=== PATIENT | female | born 1955 | race Caucasian/White ===

== ENCOUNTER 2017-05-08 07:23 | Day surgery (SDC) | payer OTHER ==
[~2017-05-08] VITALS: Ht 157.5 cm; Wt 91.6 kg
[~2017-05-08 07:23] MED LIST: ALBU90OI INH; ALBU90OI6 INH; ALBU90OI6 PO; ALBU90OI61 INH; ALLO100 PO; AMIT25 PO; AMIT50; AMIT50 PO; ASPI325 PO; ASPI81CH PO; ASPI81EC PO; ATOR40TA PO; ATOR80 PO; Advair Hfa 230-12 GM INH; Ativan0.5 MG PO; CHOL10002 PO; CITA20 PO; CITALOPRAM PO; CLOP75 PO; COLCHICINE0.6 MG PO; CYAN100 PO; CYAN500 PO; CYCL10 PO; Cyclobenzaprine5 MG PO; DAILY VALUE1 EACH PO; DICL25ER TOP; DOCU100 PO; ESTR1 PO; ESTR2 PO; ESTRADIOL; Enema133 M1 RC; Estradiol2 MG PO; FENO145 PO; FENO160 PO; FISH1000 PO; FLUSAL2505 INH; FOLI1 PO; GLYCAS PR; GUAI600T33 PO; HYDACE7.5 PO; HYDCHL25 PO; HYDCOR10 PO; HYDR1TAB94 PO; HYDSUL200 PO; Hydrocodone-Ap1 EA23 PO; Hydroxychloroq200 MG PO; LEVO750 PO; LISHYD1012 PO; LISHYD2025 PO; LISI5 PO; LORA.5 PO; LORA10 PO; LORA10ER PO; MALOXICAM; MELO7.5 PO; METF500; METF500 PO; METTREX2.5 PO; MILK OF MAGNESIA PO; MIRALAX PO; MOMENI; MULTI VITAMIN1 EACH PO; NICO14TP TOP; NICO21TP TOP; NICO7 TOP; Nasonex17 GM; Norco 7.5-3251 EACH PO; OXYACE7.5T; OXYC5 PO; PANT40 PO; POTA10T PO; POTCHL10ER PO; PRAV20 PO; PRAVASTATIN PO; PRED20 PO; PREG200 PO; PROM25 PO; PSEU120ER PO; Phenergan25 M1 PO; QVAR7.3 G1 IH; SENN187 PO; SOLI5 PO; SPIRIVA RESPIMAT4 GM INH; Simvastatin10 MG PO; TIOT18 IH; TIOT18 INH; TOLT2ER PO; TRAM50 PO; Tylenol325 MG PO; VARE1 PO; VESICARE PO; VITAMIN B 12 PO; ZESTORETIC 20-121 EA; Zocor20 MG PO
== END 2017-05-08 22:52 | disposition home or self-care (01) ==
LOC: ORSCMMR 07:23
PROVIDERS: Internal Medicine Gastroenterology
PROC: 0DB48ZX Excision of Esophagogastric Junction, Via Natural or Artificial Opening Endoscopic, Diagnostic (ICD-10-PCS; principal; 2017-05-08 08:30)
PROC: 0D758ZZ Dilation of Esophagus, Via Natural or Artificial Opening Endoscopic (ICD-10-PCS; principal; 2017-05-08 08:30)
PROC: 0DB68ZX Excision of Stomach, Via Natural or Artificial Opening Endoscopic, Diagnostic (ICD-10-PCS; principal; 2017-05-08 08:30)
PROC: 0DB58ZX Excision of Esophagus, Via Natural or Artificial Opening Endoscopic, Diagnostic (ICD-10-PCS; principal; 2017-05-08 08:30)
DX: R13.14 Dysphagia, pharyngoesophageal phase (principal); R93.8 Abnormal findings on diagnostic imaging of other specified body structures; E78.00 Pure hypercholesterolemia, unspecified; J44.9 Chronic obstructive pulmonary disease, unspecified; Z87.891 Personal history of nicotine dependence; Z79.82 Long term (current) use of aspirin; Z79.899 Other long term (current) drug therapy
CPT/HCPCS: 82947; 88305; 88312; 88342; C1726; J7120

== ENCOUNTER → 2017-12-24 | Outpatient (CLI) | payer OTHER | END | disposition home or self-care (01) | LOC: LAB 12:39 → LAB SHORT 12:39 | DX: L60.2 Onychogryphosis (principal); B35.1 Tinea unguium | CPT/HCPCS: 88305; 88312 ==

== ENCOUNTER 2018-04-02 00:04 | Day surgery (SDC) | payer OTHER ==
[2018-04-02] MEDS ORDERED: CITA20 PO (14:48)
[2018-04-02] MEDS ORDERED: HYDSUL200 PO (14:49)
[2018-04-02] MEDS ORDERED: METTREX2.5 PO (14:51)
[2018-04-02] MEDS ORDERED: TRAM50 PO (14:52)
[2018-04-02] MEDS ORDERED: MOMENI (14:54)
[2018-04-02] MEDS ORDERED: Zofran4 MG PO (14:55)
[2018-04-02] MEDS ORDERED: FOLI1 PO (14:55)
[2018-04-02] MEDS ORDERED: ADULT ASPIRIN R81 MG PO (14:56)
[2018-04-02] MEDS ORDERED: TIOT18 INH (14:56)
[2018-04-02] MEDS ORDERED: MULTI VITAMIN1 EACH PO (14:57)
[2018-04-02] MEDS ORDERED: METF500C PO (14:58)
[2018-04-02] MEDS ORDERED: Zantac150 MG PO (14:58)
[2018-04-02] MEDS ORDERED: ZESTORETIC 20-121 EA PO (15:01)
[2018-04-02] MEDS ORDERED: FURO40 PO (15:02)
== END 2018-04-02 17:50 | disposition home or self-care (01) ==
LOC: ATC 00:04
DX: G61.82 Multifocal motor neuropathy (principal)
CPT/HCPCS: 96365; 96366; J1568

== ENCOUNTER 2018-04-03 00:13 | Day surgery (SDC) | payer OTHER ==
[~2018-04-03 00:13] MED LIST changes: +ADULT ASPIRIN R81 MG PO; +FURO40 PO; +METF500C PO; +ZESTORETIC 20-121 EA PO; +Zantac150 MG PO; +Zofran4 MG PO
== END 2018-04-03 22:50 | disposition home or self-care (01) ==
LOC: ATC 00:13
DX: G61.82 Multifocal motor neuropathy (principal); M19.90 Unspecified osteoarthritis, unspecified site; I73.9 Peripheral vascular disease, unspecified; E11.9 Type 2 diabetes mellitus without complications
CPT/HCPCS: 96365; 96366; J1568

== ENCOUNTER 2018-04-04 00:12 | Day surgery (SDC) | payer OTHER ==
[2018-04-04 10:03] LABS: Anion Gap 4 mmol/L (6-16); Blood Urea Nitrogen 21 mg/dL (8-24); Bun/Creatinine Ratio 27.9 (12.0-20.0); CO2, Blood 31 mmol/L (21-32); Calcium, Blood 9.2 mg/dL (8.5-10.1); Chloride, Blood 96 mmol/L (98-108); Creatinine, Blood 0.75 mg/dL (0.40-1.00); Glomerular Filtration Rate >60 (60-); Glucose, Blood 185 mg/dL (70-99); Potassium, Blood 4.7 mmol/L (3.5-5.5); Sodium, Blood 131 mmol/L (136-145)
== END 2018-04-04 12:12 | disposition home or self-care (01) ==
LOC: ATC 00:12
PROVIDERS: Psychiatry & Neurology Neurology
DX: G61.82 Multifocal motor neuropathy (principal); E11.9 Type 2 diabetes mellitus without complications; E78.5 Hyperlipidemia, unspecified; G47.30 Sleep apnea, unspecified; K21.9 Gastro-esophageal reflux disease without esophagitis; F32.9 Major depressive disorder, single episode, unspecified; Z87.891 Personal history of nicotine dependence
CPT/HCPCS: 80048; 96365; 96366; J1568

== ENCOUNTER 2018-05-28 00:24 | Day surgery (SDC) | payer OTHER ==
[2018-05-28] MEDS ORDERED: Hydrochloroth12.5 MG PO (15:13)
[2018-05-28] MEDS ORDERED: LISI5 PO (15:14)
[2018-05-28] MEDS ORDERED: KAPSPARGO SPRIN25 MG PO (15:16)
== END 2018-05-28 16:29 | disposition home or self-care (01) ==
LOC: ATC 00:24
DX: G61.82 Multifocal motor neuropathy (principal); Z87.891 Personal history of nicotine dependence
CPT/HCPCS: 96365; 96366; J1568

== ENCOUNTER 2018-05-29 00:10 | Day surgery (SDC) | payer OTHER ==
[~2018-05-29 00:10] MED LIST changes: +Hydrochloroth12.5 MG PO; +KAPSPARGO SPRIN25 MG PO
== END 2018-05-29 15:50 | disposition home or self-care (01) ==
LOC: ATC 00:10
DX: G61.82 Multifocal motor neuropathy (principal)
CPT/HCPCS: 96365; 96366; J1568

== ENCOUNTER 2018-05-30 00:20 | Day surgery (SDC) | payer OTHER | END 2018-05-30 15:47 | disposition home or self-care (01) | LOC: ATC 00:20 | DX: G61.82 Multifocal motor neuropathy (principal); Z88.2 Allergy status to sulfonamides | CPT/HCPCS: 96365; 96366; J1568 ==

== ENCOUNTER 2018-05-31 00:04 | Day surgery (SDC) | payer OTHER | END 2018-05-31 16:00 | disposition home or self-care (01) | LOC: ATC 00:04 | DX: G61.82 Multifocal motor neuropathy (principal); Z87.891 Personal history of nicotine dependence | CPT/HCPCS: 96365; 96366; J1568 ==

== ENCOUNTER → 2018-08-13 | Outpatient (CLI) | payer OTHER ==
[2018-08-14 20:40] LABS: Adenovirus F 40/41 Not Detected (NOT DETECT); Astrovirus Not Detected (NOT DETECT); Campylobacter Sp Not Detected (NOT DETECT); Cryptosporidium Not Detected (NOT DETECT); Cyclospora Cayetanensis Not Detected (NOT DETECT); E. Coli O157 Not Detected (NOT DETECT); Entamoeba Histolytica Not Detected (NOT DETECT); Enteroaggregative E. coli-EAEC Not Detected (NOT DETECT); Enteropathogenic E. coli-EPEC Not Detected (NOT DETECT); Enterotoxigenic E. coli-ETEC Not Detected (NOT DETECT); Giardia Lamblia Not Detected (NOT DETECT); Norovirus GI/GII Not Detected (NOT DETECT); Plesiomonas Shigelloides Not Detected (NOT DETECT); Rotavirus A Not Detected (NOT DETECT); Salmonella Sp Not Detected (NOT DETECT); Sapovirus Not Detected (NOT DETECT); Shiga Toxin-prod E. coli-STEC Not Detected (NOT DETECT); Shigella/Enteroin E. coli-EIEC Not Detected (NOT DETECT); Vibrio Cholerae Not Detected (NOT DETECT); Vibrio Sp Not Detected (NOT DETECT); Yersinia Enterocolitica Not Detected (NOT DETECT)
== END | disposition home or self-care (01) ==
LOC: LAB 10:30 → LAB SHORT 10:30
PROVIDERS: Nurse Practitioner Family
DX: R10.31 Right lower quadrant pain (principal); R19.7 Diarrhea, unspecified
CPT/HCPCS: 87507

== ENCOUNTER → 2018-08-15 | Outpatient (CLI) | payer OTHER ==
[~2018-08-15] MED LIST changes: +METO25ER PO
== END | disposition home or self-care (01) ==
LOC: LAB 13:30 → LAB SHORT 13:30
DX: R10.31 Right lower quadrant pain (principal); R19.7 Diarrhea, unspecified
CPT/HCPCS: 87177; 87209

== ENCOUNTER 2018-08-23 17:51 | Inpatient (IN) | payer OTHER ==
[~2018-08-23] VITALS: Ht 157.5 cm; Wt 75.1 kg
[~2018-08-23 17:51] MED LIST changes: -METO25ER PO
[2018-08-23 18:55] LABS: BASOPHILS ABSOLUTE AUTO 0.03 K/mm3 (0.00-0.23); BASOPHILS PERCENT AUTO 0 % (0-2); EOSINOPHILS ABSOLUTE AUTO 0.29 K/mm3 (0.00-0.68); EOSINOPHILS PERCENT AUTO 3 % (0-6); Hematocrit 27.9 % (33.0-51.0); Hemoglobin 8.7 g/dL (11.5-16.0); IMMATURE GRAN PERCENT AUTO 1 % (0-1); LYMPHOCYTES PERCENT AUTO 15 % (21-46); MONOCYTES ABSOLUTE AUTO 0.27 K/mm3 (0.16-1.47); MONOCYTES PERCENT AUTO 3 % (4-13); Mean Corpuscular HGB 30.6 pg (26.0-34.0); Mean Corpuscular HGB Conc 31.2 g/dL (31.5-36.5); Mean Platelet Volume 10.2 fL (9.1-12.4); NEUTROPHILS PERCENT AUTO 79 % (41-73); Platelet Count 224 K/mm3 (150-400); RDW Coefficient Variation 20.4 % (11.7-14.2); RDW Standard Deviation 71.9 fL (35.1-46.3); Red Blood Cell Count 2.84 M/mm3 (3.80-5.20); White Blood Cell Count 10.19 K/mm3 (4.00-11.30)
[2018-08-23 19:01] LABS: Mean Corpuscular Volume 98 fL (80-100)
[2018-08-23 19:18] LABS: Albumin, Blood 3.4 g/dL (3.4-5.0); Bilirubin, Total 0.4 mg/dL (0.1-1.0); Bun/Creatinine Ratio 29.7 (12.0-20.0); Calcium, Blood 8.8 mg/dL (8.5-10.1); Creatinine, Blood 1.18 mg/dL (0.40-1.00); Globulin, Blood 3.5 g/dL (2.2-4.0); Potassium, Blood 3.8 mmol/L (3.5-5.5); Total Protein, Blood 6.9 g/dL (6.4-8.2)
[2018-08-23 22:38] LABS: Source, Urine Clean Catch
[2018-08-23 22:41] LABS: Bilirubin, Urine Neg (Neg); Blood, Urine Neg (Neg); Glucose Qualitative, Urine Neg (Neg); Ketones, Urine Neg (Neg); Leukocyte Esterase, Urine 1+ (Neg); Nitrite, Urine Neg (Neg); Protein, Urine Neg (Neg); Urobilinogen, Urine NORM (Normal)
[2018-08-23 22:47] LABS: Appearance, Urine Clear (Clear); Color, Urine Yellow (P-Yellow)
[2018-08-23 22:48] LABS: Red Blood Cells, Urine Not Seen /hpf (0-2); White Blood Cells, Urine 0-2 /hpf (0-5)
[2018-08-23 22:49] LABS: Bacteria Rare /hpf; Squamous Epithelial Cells Not Seen /hpf (Few)
[2018-08-23] MEDS ORDERED: METO25ER PO (23:26)
[2018-08-24 04:52] LABS: Hematocrit 30.4 % (33.0-51.0); Hemoglobin 9.1 g/dL (11.5-16.0); Mean Corpuscular HGB 30.5 pg (26.0-34.0); Mean Corpuscular HGB Conc 29.9 g/dL (31.5-36.5); Mean Platelet Volume 10.4 fL (9.1-12.4); Platelet Count 241 K/mm3 (150-400); RDW Coefficient Variation 20.2 % (11.7-14.2); RDW Standard Deviation 73.4 fL (35.1-46.3); Red Blood Cell Count 2.98 M/mm3 (3.80-5.20); White Blood Cell Count 14.39 K/mm3 (4.00-11.30)
[2018-08-24 04:53] LABS: Mean Corpuscular Volume 102 fL (80-100)
--- NOTE | 2018-08-24 04:56 | NUR ---
SHIFT SUMMARY PT NEW ADMIT THIS SHIFT. AAOX4/NPO. DISCOMFORT CONTROLLED WITH 0.5MG IV DILAUDID X2 THIS AM. NO NAUSEA/EMESIS. PT 2 PERSON MODERATE ASSIST UP TO BSC. SURGICAL CONSULT CALLED THIS AM. PT RESTED WELL THIS AM. PT ORIENTED TO ROOM + CALL LIGHT USE. RESTING AT THIS TIME. CALL LIGHT IN REACH.
[2018-08-24 05:13] LABS: Albumin, Blood 3.3 g/dL (3.4-5.0); Albumin/Globulin Ratio 0.9 (0.8-1.8); Bilirubin, Total 0.5 mg/dL (0.1-1.0); Bun/Creatinine Ratio 28.8 (12.0-20.0); Calcium, Blood 8.5 mg/dL (8.5-10.1); Creatinine, Blood 1.04 mg/dL (0.40-1.00); Globulin, Blood 3.6 g/dL (2.2-4.0); Potassium, Blood 3.7 mmol/L (3.5-5.5); Total Protein, Blood 6.9 g/dL (6.4-8.2)
--- NOTE | 2018-08-24 09:05 | NUR ---
POWDER NOT APPLIED TO ABD FOLDS PT TO HAVE PROCEDURE TODAY, DRY CLOTH PLACED IN FOLDS.
--- NOTE | 2018-08-24 12:11 | NUR ---
ANESTHESIA HERE WITH OTHER RN. PT GOING TO HAVE PROCEDURE. DISCUSSED PT'S STATUS INCLUDING LS SWITCH BETWEEN COARSE AND DIMINISHED, WITH LAST LS BEING DIMINISHED. BELONGINGS TAKEN OFF AND PLACED IN CUP AND PLACED IN PT'S PERSONAL BAG. DISCUSSED WITH ANESTHESIA THAT PT REQUESTED THAT THE DR CALLED PT'S FAMILY. PT TO HAVE PROCEDURE.
--- NOTE | 2018-08-24 14:16 | NUR ---
NASAL TRUMPET OUT
--- NOTE | 2018-08-24 14:34 | NUR ---
REPORT GIVEN TO SHIPPING PACKER WHO WILL BE TAKING OVER PT'S CARE. BELONGINGS TAKEN TO ROOM. MEDICATIONS LOCKED IN DRAWER.
--- NOTE | 2018-08-24 18:28 | NUR ---
PT HAS BEEN A/O X4 SINCE BEING TRANSFERED TO OUR FLOOR AT 1555. BP'S HAVE BEEN APROXIMATELY 80'S OVER 50'S SINCE SURGERY AT 1300, PT IS NOT SYMPTOMATIC, NO LIGHTHEADEDNESS OR NO DIZZYNESS. PT'S PAIN HAS BEEN MINIMAL WITH REST, AND A 5 WITH MOVEMENT. FINE WHEEZES WITH EXPIRATION ON LEFT SIDE, RIGHT SIDE CLEAR. O2 SATURATION 94% WITH 1.5L. BED IN LOWEST POSITON, CALL LIGHT IN REACH, PT ORIENTED TO SAFETY PROTOCOL.
--- NOTE | 2018-08-25 05:03 | NUR ---
ASSUMED CARE FROM CORNELL RN, AND LI MCKEE, AT APPROXIMATELY 1900. PT HAD A HERNIA REPAIR TODAY, HAS A WOUND VAC IN PLACE W/ ABDOMEN BINDER; PT FORGETS LIMITS AT TIMES AND TRIED TO GET OUT OF BED; TWO PERSON ASSIST; SANTOS IN PLACE AND DRAINING; PT COMPLAINS OF SOB WHEN LAYED FLAT, BECOMES ANXIOUS W/ SOB WITH POSITION CHANGES AND DESATS; PT GASPS FOR AIR AND NEEDS REMINDED TO BREATH THROUGH NOSE TO MAKE USE OF NC; RT WAS CALLED; SLEPT ON AND OFF THROUGH THE NIGHT; HAD SEVERE PAIN IN LOWER AMDOMEN AND MEDICATION WAS ADMINISTERED PER ORDERS; BED IN LOWEST POSITION; CALL LIGHT WITHIN REACH; WILL CONTINUE TO MONITOR AND ASSESS UNTIL HANDOFF TO DAY SHIFT RN.
--- NOTE | 2018-08-25 05:27 | NUR ---
PATIENT REPORTED NOT BEING ABLE TO BREATH WELL WHEN LAYING FLAT; O2 NEEDS INCREASED TO 2LPM VIA NC; PATIENT NEEDS ENCOURAGEMENT TO BREATH IN NOSE; OXYEGN REMOVED ONCE THROUGH OUT NIGHT. CALLED RT TWICE DURING NIGHT. PATIENT APPEARS TO SLEEP WELL WHEN SITTING UP IN BED; MEDICATED PER EMAR FOR PAIN; APPEARED TO SLEEP WELL IN BETWEEN IV PAIN MEDICATION ADMINISTRATION.
--- NOTE | 2018-08-25 11:00 | NUR ---
PT WAS FOUND DOWN ON THE GROUND BESIDES THE BED FOLLOWING AN UNWITNESSED FALL. PREPRESS PROOFER NOTICED CALL LIGHT WAS FLASHING DUE TO BEING PULLED OUT. PT FOUND DOWN AT 1022, TELEMETRY SAID THAT PT'S LEADS CAME OFF AT 1021. PT WAS PANICING AND PULLING AT NEARBY CORDS, VITALS WERE TAKEN ON THE GROUND WHILE OXYGEN WAS OFF AND O2 SATURATION WAS 78, BP 105/66, AND HR 142. PT WAS CONFUSED UPON ASSESSMENT, OXYGEN WAS PLACED BACK ON AND PT WAS CALMED. PT WAS RETURNED TO BED AT 1029 VIA HOVERMAT, AND PT WAS ORIENTED WITH VITALS OF 96% 02, BP OF 131/72, AND HR OF 124. PT WAS FREE OF ANY SKIN BLEMISHES, AND STATED THAT SHE HAD A PAIN LEVEL OF A 1. VITALS AND NEURO CHECKS WERE COMPLETED Q15 FOR AN HOUR AND VITALS WERE ASSESSED HOURLY FOR THE REMAINING OF THE DAY, HR AND BP HAVE TRENDED BACK TO PRE-FALL BASELINE. ABDOMINAL HERNIA/SURGICAL WOUND REMAINS INTACT WITHOUT DEHISCENCE, PT STATES NO PAIN AT SITE, WOUND VAC STILL INTACT AND PATENT. BED ALARM IS ON, YELLOW GOWN ON PT, PT ORIENTED TO SAFETY PRECAUTIONS, AND NURSING STAFF HAVE BEEN IN ROOM FREQUENTLY.
--- NOTE | 2018-08-25 18:13 | NUR ---
SHIFT SUMMARY PT IS BECOMING MORE ALERT. PT RECEIVED AN OXYCODONE AT 900 THIS MORNING FOR PAIN, WHICH IT RESOLVED, BUT PT HAS BEEN SOMNOLENT WITH INCREASED CONFUSION SINCE NARCOTIC ADMINISTRATION. PT HAS BECOME LUCID OF 1800 AND IS SITTING UP FOR DINNER. PT FELL ABOUT AN HOUR AFTER NARCOTIC ADMINISTRATION, LATER STATED SHE WAS CONFUSED AND WAS TRYING TO GO TO THE BATHROOM, BECAUSE SHE FORGOT ABOUT HER CATHETER. BROTHER ARRIVED SHORTLY AFTERWARDS AND STATED THAT SHE HAS HAD FALLS AT HOME IN THE PAST. PT HAS HAD A BP IN 90' OVER 50'S MOST OF THE SHIFT, WHICH WE WERE TOLD BY TITUS (ROOMMATE) THAT THIS IS CLOSE TO HER BASELINE. WOUND HAS HAD NO DRAINAGE, PAIN HAS BEEN CONTROLLED SINCE ADMINISTRATION OF OXYCODONE AT 900, OXY HAS SINCE BEEN DC'D. LUNG SOUNDS HAVE CRACKLES IN BIALTERAL BASES. CALL LIGHT IN REACH, BED IN LOWEST POSITION, BED ALARM ON, AND PT ORIENTED TO SAFETY PRECAUTIONS.
--- NOTE | 2018-08-26 00:14 | NUR ---
ASSUMED CARE FROM BARTOLOME SARABIA AND SN LI AT APPROXIMATELY 1900. PT HAS NC IN MOUTH TO MAINTAIN SATS WHILE OFF BIPAP. SHE IS ANXIOUS TO DISCHARGE; SEEMS LONELY AT TIMES; PT ENJOYS EATING PUDDING A SNACK AND TOLERATES WELL; ASSISTANCE WITH DRINK AND REMINDED TO TAKE SMALL SIPS AT A TIME PT COUGHS AFTER DRINK; PT UTILIZED BIPAP FOR SHORT AMOUNT OF TIME AND C/O OF DISCOMFORT AND REQUESTED TO USE NC FOR NAP; BED IN LOWEST POSITION, CALL LIGHT WITHIN REACH; BED ALARM ON; WILL CONTINUE TO MONITOR AND ASSESS UNTIL HANDOFF TO DAY SHIFT RN.
--- NOTE | 2018-08-26 00:50 | NUR ---
ASSUMED CARE FROM BARTOLOME SARABIA AND SN LI AT APPROXIMATELY 1900. PT SEEMS TO GO BETWEEN CONFUSION AND LUCID MOMENTS; STATED SHE "FEELS FUNNY" DURING SHIFT ASSESSMENT; ANXIOUS TO BE DISCHARGED TO HOME; TAB ALARMS PLACED DURING SHIFT REPORT AND BED ALARM CONFIRMED; PT EDUCATED ON TAB ALARM PLACEMENT AND NEED TO CALL FOR ASSISTANCE; ABDOMEN VERY TENDER AND PT DID NOT TOLERATE WELL ASSESSMENT OF WOUND VAC AND ABDOMEN BINDER; MEDICATION ADMINISTERED PER ORDERS; PT CURRENTLY CALM AND RESTING WELL; BED ALARM ON; BED IN LOWEST POSITION; CALL LIGHT WITHIN REACH; WILL CONTINUE TO ASSESS AND MONITOR UNTIL HANDOFF TO DAY SHIFT RN.
--- NOTE | 2018-08-26 03:45 | NUR ---
CLEANSED LOWER ABDOMEN AND SHAY AREA; APPLIED NYSTATIN; PT SLEEPING WELL; NO S/SX OF PAIN NOTED AFTER MEDICATING PER EMAR; WILL CONTINUE TO MONITOR AND ASSESS UNTIL END OF SHIFT.
--- NOTE | 2018-08-26 11:58 | NUR ---
PT ATTEMPTED TO GET OUT OF BED, CORNELL ASSISTED BACK INTO BED AND REORIENTED PT TO UTILIZING THE CALL LIGHT FOR NEEDS. PT WAS THE 2 MAX ASSIST UP TO BSC, DIFFICULT WITH FOLLOWING DIRECTIONS, REQUIRES CONSTANT DIRECTIONING IN DIRECT SINGLE REQUESTS. PT IS VERY WEAK WITH BLE. PT HAS BEEN SQUIRMING AROUND IN BED AND HAVING INTERMITTENT SELF TALK THIS AM. TALKED TO TITUS (ROOMMATE) THIS MORNING, PT GAVE PERMISSION TO DISCUSS CARE WITH ROOMMATE. ROOMMATE SAID THAT SHE DOESN'T SOUND "BACK TO NORMAL" YET, BUT SHE STATED THAT SHE ALWAYS HAS THAT "DIFFICULT TO UNDERSTAND" SPEECH PATTERN. INFORMED ROOMMATE WE'D KEEP HER IN THE LOOP
--- NOTE | 2018-08-26 13:45 | NUR ---
ASSISTED PT WITH 2 MAX ASSIST TO BSC. PT WAS MORE ORIENTED AND WAS ABLE TO FOLLOW COMMANDS MORE APPROPRIATELY. DELAYED RESPONSES TO COMMANDS, BUT PERFORMED SELF MOUTH CARE WITH BOTH HANDS USING TOOTHETTE. PT HAS WEAK BLE WITH TRANSFER, BUT WAS ABLE TO STAND LONG ENOUGH TO TURN AND PIVOT WITH VERBAL DIRECTING. PT VOIDED 45ML. BED MOVED TO WINDOWN, PT SHOWED DESIRE TO SEE OUTSIDE.
--- NOTE | 2018-08-26 17:47 | NUR ---
SHIFT SUMMARY PT HAS BEEN BECOMING MORE CLEAR HEADED THROUGHOUT THE SHIFT, BUT STILL HAS BOUTS OF CONFUSION. PT IS DIFFICULT TO UNDERSTAND, MUMBLES AND IS SLOW TO RESPOND. REQUIRES CONTINUAL DIRECTING FOR TURN AND PIVOT TO BSC, PT MOVED TO BSC WITH 2 MAX ASSIST MULTIPLE TIMES TODAY. SANTOS WAS OUT AT 0519 THIS MORNING, PT HAS SATURATED ONE BRIEF, THEN HAD 45ML IN BSC A FEW HOURS LATER. BLADDER SCAN AT 1420 READ 402, DR ELIZONDO ORDERED FLOMAX AND WANTED HER TO BE GIVEN SOME MORE TIME BEFORE STRAIGHT CATH. PT HAS BEEN SINUS TACH IN THE LOW 100'S. PT'S BED WAS MOVED IN FRONT OF THE WINDOW, DUE TO DESIRE FOR SEEING OUTSIDE, SINCE THEN PT HAS BEEN FAIRLY CALM IN BED. HEAD CT SCAN WAS DONE TODAY AT 1700. PT/OT CONSULTS ARE PUT IN. TITUS (ROOMMATE) STATED THAT THE PT WILL NEED TO BE "INDEPENDENT WHEN SHE COMES HOME BECAUSE SHE AHS HER OWN BODILY AILMENT, HIP AND KNEE, TO TAKE CARE OF". PT HAS BEEN ORIENTED TO SAFETY FALL PRECAUTIONS, BED IS IN LOWEST POSITION, CALL LIGHT IN REACH, AND PERSONAL ITEMS WITHIN REACH.
[2018-08-26 23:41] LABS: PCO2 Arterial 54.6 mmHg (35-45); pH Blood Arterial 7.39 (7.35-7.45)
--- NOTE | 2018-08-27 05:39 | NUR ---
SHIFT SUMMARY PT RESTING IN ROOM COMFORTABLY AT THIS TIME. PT HAS ONE EPISODE OF MAJOR CONFUSION DURING THE NIGHT. PT SET OFF TAB ALARM IN EFFORTS TO GET OUT OF BED W/O USING CALL LIGHT. PT REPORTED HAVING TO USE RR. PT WAS A MAX LIFT ASSIST 3 PERSON TO BSC. PT WAS UNABLE TO SUPPORT SELF TO STANDING POSITION AND 3 STAFF MEMBERS WERE NEEDED TO GET PT TO BSC AND BACK TO BED. PT REMAINED VERY CONFUSED T/O EVENT. VITALS TAKEN ONCE PT BACK IN BED, O2 SATS WERE 72%. O2 REPLACED ON PT AND BUMPED UP TO 4L TO RECOVER PT. PT BACK TO BASELINE MENTATION IN BED W/IN 5 MIN. PT GIVEN ORAL MEDICATIONS FOR REPORTED ABD PAIN. PT CONTINUED TO REST WELL T/O REST OF SHIFT. CONTINUES TO NEED REMINDING TO KEEP O2 IN NOSE. PT AT TIMES CONFUSED AND HARD TO UNDERSTAND VERBALLY. BED ALARM AND TAB ALARM ON FOR SAFETY.
[2018-08-27 06:40] LABS: BASOPHILS ABSOLUTE AUTO 0.04 K/mm3 (0.00-0.23); BASOPHILS PERCENT AUTO 1 % (0-2); Hematocrit 26.1 % (33.0-51.0); Hemoglobin 7.7 g/dL (11.5-16.0); LYMPHOCYTES ABSOLUTE AUTO 0.49 K/mm3 (0.84-5.20); LYMPHOCYTES PERCENT AUTO 6 % (21-46); MONOCYTES ABSOLUTE AUTO 0.96 K/mm3 (0.16-1.47); MONOCYTES PERCENT AUTO 11 % (4-13); Mean Corpuscular HGB 29.8 pg (26.0-34.0); Mean Corpuscular HGB Conc 29.5 g/dL (31.5-36.5); Mean Corpuscular Volume 101 fL (80-100); Mean Platelet Volume 10.4 fL (9.1-12.4); Platelet Count 210 K/mm3 (150-400); RDW Coefficient Variation 19.6 % (11.7-14.2); RDW Standard Deviation 70.4 fL (35.1-46.3); Red Blood Cell Count 2.58 M/mm3 (3.80-5.20); White Blood Cell Count 8.63 K/mm3 (4.00-11.30)
[2018-08-27 06:46] LABS: EOSINOPHILS ABSOLUTE AUTO 0.13 K/mm3 (0.00-0.68); EOSINOPHILS PERCENT AUTO 2 % (0-6); IMMATURE GRAN ABSOLUTE AUTO 0.06 K/mm3 (0.00-0.10); IMMATURE GRAN PERCENT AUTO 1 % (0-1); NEUTROPHILS ABSOLUTE AUTO 6.95 K/mm3 (1.96-9.15); NEUTROPHILS PERCENT AUTO 81 % (41-73)
[2018-08-27 07:03] LABS: Anion Gap 5 mmol/L (6-16); Blood Urea Nitrogen 22 mg/dL (8-24); CO2, Blood 34 mmol/L (21-32); Calcium, Blood 8.8 mg/dL (8.5-10.1); Chloride, Blood 105 mmol/L (98-108); Creatinine, Blood 0.67 mg/dL (0.40-1.00); Glomerular Filtration Rate >60 (60-); Glucose, Blood 102 mg/dL (70-99); Potassium, Blood 3.3 mmol/L (3.5-5.5); Sodium, Blood 144 mmol/L (136-145)
--- NOTE | 2018-08-27 20:33 | NUR ---
SHIFT SUMMARY Assumed care of pt at 0700. Report received from Palak MANCUSO. Pt on 2 LPM NC at time of report, O2 sats 97%. Attempted to titrate to 1 LPM, but pt desaturated to 85%. Pt triggered bed alarm once. Pt sitting up on edge of bed could not follow directions and was not answering questions. Pt assisted back into bed and then fell asleep. After this, pt difficult to arouse. AM medications not given for this reason. Dr Knowles in to see patient. Medications discussed. New orders entered by provider. Dr Sanchez in to see pt around 1400. Notified provider that pt has not had a BM in 7 days. No new orders given. At 1630, this RN called Dr Knowles to notify that pt's mentation has not improved. No new orders from provider. VSS. Bedside report given to Rafia lu RN at 1915. During bedside report, pt awoke to verbal stimulus and remained awake. Pt did not answer questions or follow directions.
--- NOTE | 2018-08-28 07:37 | NUR ---
aaron speech, alert, baseline, speech continued to improve, call light in reach, multiple spills of drinks dispite being in a covered container, walking rounds completed with day staff, saline locked, 3 L via ks working with RT
--- NOTE | 2018-08-28 14:23 | NUR ---
CHUCK SPLITTER called gayle giordano blue. Diana brother called with no answer. friend Mercedes called. informed the brother is in [facility]. she willtry to contact him. Dr. Knowles called. he will see the patient in ICU.
--- NOTE | 2018-08-28 14:30 | NUR ---
TRAMSFERRED TO ICU, ROOM 15, VIA BIED FROM MEDICAL FLOOR; PATIENT WAS A "CODE BLUE" OUT ON THE FLOOR (MEDICAL); INTUBATED AND ARRIVED HERE, TO ICU. VENT. CONNECTED; SEE R.T. NOTES FOR SPECIFICS. LUNGS VERY DIMINISHED T/O POSTERIOR; NO AIR MOVEMENT HEARD IN LLL. IV STARTED BY STACY CHIU, (20 G TO ROBERTO); ARRIVED WITH 20 G TO RFA. SANTOS CATH. (#14 IRISH) PLACED; TO GRAVITY. OGT PLACED (#16 [place] SUMP) AND CONNECTED TO LIS; DRAINING YELLOW/GREEN FLUID. ABD. WITH BINDER AND WOUND VAC DRESSING; SMALL WOUND VAC TO SIDE OF PATIENT; NO DRAINAGE NOTED. SBP 90'S BUT MAP STAYING ABOVE 65. DR. GENTILE (FLEET COORDINATOR) CONSULTING; SEE MULTIPLE ORDERS.
--- NOTE | 2018-08-28 14:32 | NUR ---
CODE MARIAA @ ONSET OF SHIFT PT WAS AWAKE HOWEVER CONFUSED, CHILDLIKE/LABILE. SHE WAS ABLE TO CALM. 1-2 ASSIST UP TO CHAIR/BSC. SHE STAYED UP IN CHAIR FOR LUNCH, TOOK PHONE CALLS FROM FAMILY/FRIENDS. SHE PARTICIPATED WITH [employer]. OCCTHER CAME TO WORK WITH HER, ASSISTED HER TO BED WHEN SHE BECAME NONRESPONSIVE. NOTIFIED THIS RN, ON ARRIVAL TO ROOM THERAPISTS WERE ATTEMPTING TO GET BP, UNABLE TO FIND PULSE CODE MARIAA CALLED. CPR STARTED. CODE TEAM TO ROOM, ABLE TO GET FAINT PULSE, STOP CPR. PT INTUBATED & TRANSFERRED TO ICU. REPORT CALLED TO KATHRIN DOLL MAKER.
--- NOTE | 2018-08-28 15:00 | NUR ---
SET- UP DAY
[2018-08-28 15:43] LABS: BASOPHILS ABSOLUTE AUTO 0.04 K/mm3 (0.00-0.23); BASOPHILS PERCENT AUTO 0 % (0-2); Hematocrit 28.2 % (33.0-51.0); Hemoglobin 8.3 g/dL (11.5-16.0); LYMPHOCYTES ABSOLUTE AUTO 1.19 K/mm3 (0.84-5.20); LYMPHOCYTES PERCENT AUTO 11 % (21-46); MONOCYTES ABSOLUTE AUTO 1.19 K/mm3 (0.16-1.47); MONOCYTES PERCENT AUTO 11 % (4-13); Mean Corpuscular HGB 30.3 pg (26.0-34.0); Mean Corpuscular HGB Conc 29.4 g/dL (31.5-36.5); Mean Corpuscular Volume 103 fL (80-100); Mean Platelet Volume 10.8 fL (9.1-12.4); NRBC ABSOLUTE 0.08 K/mm3 (0.00-0.02); NRBC Auto 0.7 /100 WBC (0.0-0.2); Platelet Count 295 K/mm3 (150-400); RDW Coefficient Variation 19.9 % (11.7-14.2); RDW Standard Deviation 73.8 fL (35.1-46.3); Red Blood Cell Count 2.74 M/mm3 (3.80-5.20); White Blood Cell Count 10.67 K/mm3 (4.00-11.30)
[2018-08-28 15:45] LABS: EOSINOPHILS ABSOLUTE AUTO 0.23 K/mm3 (0.00-0.68); EOSINOPHILS PERCENT AUTO 2 % (0-6); IMMATURE GRAN ABSOLUTE AUTO 0.91 K/mm3 (0.00-0.10); IMMATURE GRAN PERCENT AUTO 9 % (0-1); NEUTROPHILS ABSOLUTE AUTO 7.11 K/mm3 (1.96-9.15); NEUTROPHILS PERCENT AUTO 67 % (41-73)
[2018-08-28 15:57] LABS: Anion Gap 7 mmol/L (6-16); Blood Urea Nitrogen 20 mg/dL (8-24); Bun/Creatinine Ratio 27.3 (12.0-20.0); CO2, Blood 34 mmol/L (21-32); Calcium, Blood 8.7 mg/dL (8.5-10.1); Chloride, Blood 99 mmol/L (98-108); Creatinine, Blood 0.73 mg/dL (0.40-1.00); Glomerular Filtration Rate >60 (60-); Glucose, Blood 178 mg/dL (70-99); Magnesium, Blood 1.7 mg/dL (1.6-2.4); Phosphorus, Blood 3.5 mg/dL (2.5-4.9); Potassium, Blood 3.4 mmol/L (3.5-5.5); Sodium, Blood 140 mmol/L (136-145); Troponin I <0.015 ng/mL (0.000-0.040)
[2018-08-28 15:58] LABS: International Normalized Ratio 0.99; Prothrombin Time Results 10.5 Sec (9.7-11.5)
[2018-08-28 16:01] LABS: PCO2 Arterial 43.9 mmHg (35-45); PO2 Arterial 316 mmHg (80-100); pH Blood Arterial 7.52 (7.35-7.45)
--- NOTE | 2018-08-28 18:21 | NUR ---
SUMMARY: CARE TRANSFERRED TO LINUS OLSEN RN. NO ACUTE CHANGES; VENT. SETTINGS ADJUSTED BY DR. GENTILE--CURRENTLY A/C 16, TV 350, PEEP 5 AND FIO2 40%. LACTIC ACIDE WAS OVER 3; TO BE REPEATED LATER; SEE FURTHER LAB ORDERS. K+ LEVEL 3.3--RECEIVING RIDERS. F/C WITH 825/UO (SHERICE IN COLOR). WILL SEND UA. SBP 80'S BUT MAP [place]. PICC LINE PLACED BY STAFF IN [facility]. SEE UPDATES IN CHART. .
[2018-08-28 18:37] LABS: Source, Urine Catheter
[2018-08-28 18:41] LABS: Appearance, Urine Hazy (Clear); Blood, Urine Neg (Neg); Color, Urine Yellow (P-Yellow); Glucose Qualitative, Urine Neg (Neg); Ketones, Urine Neg (Neg); Leukocyte Esterase, Urine 1+ (Neg); Nitrite, Urine Neg (Neg); Protein, Urine 2+ (Neg); Urobilinogen, Urine 2+ (Normal)
[2018-08-28 19:00] LABS: Bilirubin, Urine 1+ (Neg)
[2018-08-28 19:02] LABS: Bacteria Many /hpf; Hyaline Casts 0-2 /lpf (0-2); Red Blood Cells, Urine 0-2 /hpf (0-2); Squamous Epithelial Cells Mod /hpf (Few)
--- NOTE | 2018-08-28 20:00 | NUR ---
PT INTUBATED AND SEDATED WITH PROPOFOL. RESPONDS TO VERBAL BY OPENING EYE'S BRIEFLY. PT HAS ABD BINDER ON. THERE IS SMALL WOUND VAC TO MID ABD THAT HAS GOOD SEAL. SEE ASSESSMENT.
[2018-08-29 04:19] LABS: Hematocrit 25.4 % (33.0-51.0); Hemoglobin 7.5 g/dL (11.5-16.0); Mean Corpuscular HGB 29.5 pg (26.0-34.0); Mean Corpuscular HGB Conc 29.5 g/dL (31.5-36.5); Mean Platelet Volume 10.4 fL (9.1-12.4); NRBC ABSOLUTE 0.03 K/mm3 (0.00-0.02); NRBC Auto 0.3 /100 WBC (0.0-0.2); Platelet Count 281 K/mm3 (150-400); RDW Coefficient Variation 19.9 % (11.7-14.2); RDW Standard Deviation 73.2 fL (35.1-46.3); Red Blood Cell Count 2.54 M/mm3 (3.80-5.20); White Blood Cell Count 8.87 K/mm3 (4.00-11.30)
[2018-08-29 04:23] LABS: Mean Corpuscular Volume 100 fL (80-100)
[2018-08-29 04:36] LABS: Anion Gap 6 mmol/L (6-16); Blood Urea Nitrogen 22 mg/dL (8-24); Bun/Creatinine Ratio 35.3 (12.0-20.0); CO2, Blood 33 mmol/L (21-32); Calcium, Blood 8.2 mg/dL (8.5-10.1); Chloride, Blood 103 mmol/L (98-108); Creatinine, Blood 0.62 mg/dL (0.40-1.00); Glomerular Filtration Rate >60 (60-); Glucose, Blood 176 mg/dL (70-99); Potassium, Blood 3.8 mmol/L (3.5-5.5); Sodium, Blood 142 mmol/L (136-145)
[2018-08-29 04:46] LABS: BAND PERCENT MAN 19 % (0-8); BASOPHILS PERCENT MAN 0 % (0-2); EOSINOPHILS PERCENT MAN 0 % (0-6); LYMPHOCYTES ABSOLUTE MAN 0.08 K/mm3 (0.84-5.20); LYMPHOCYTES PERCENT MAN 1 % (21-46); METAMYELOCYTE ABSOLUTE MAN 0.08 K/mm3 (0.00-0.00); METAMYELOCYTE PERCENT MAN 1 % (0-0); MONOCYTES ABSOLUTE MAN 0.17 K/mm3 (0.16-1.47); MONOCYTES PERCENT MAN 2 % (4-13); MYELOCYTE ABSOLUTE MAN 0.08 K/mm3 (0.00-0.00); MYELOCYTE PERCENT MAN 1 % (0-0); NEUTROPHILS ABSOLUTE MAN 8.42 K/mm3 (1.96-9.15); SEG NEUTROPHILS PERCENT MAN 76 % (41-73); TOTAL CELLS COUNTED 100
--- NOTE | 2018-08-29 05:32 | NUR ---
SUMMARY PT REMAINS INTUBATED AND SEDATED. PT AROUSES EASILY TO VOICE. ABLE TO NOD YES OR NO TO QUESTIONS. GAVE FENTANYL THIS AM FOR PAIN AFTER REPOSITIIONING. NO OUTPUT FROM WOUND VAC, DRESSING IS C/D/I WITH GOOD SUCTION. ABD BINDER IN PLACE. NO SIGN OF DISTRESS.
--- NOTE | 2018-08-29 07:30 | NUR ---
ASSUMED CARE OF PATIENT; SEE ASSESSMENT CHARTING FOR DETAILS. PATIENT REMAINS INTUBATED AND ON VENTILATOR; SETTINGS: A/C 16, TV 350, PEEP 5 AND FIO2 40%. PROPOFOL DRIP AT 25MCG/KG/MIN. LUNGS COARSE ANTERIORLY; SUCTIONED SMALL AMOUNT OF SECRETIONS (CLEAR) FROM ETT. OGT TO LIS; DRAINING SMALL AMOUNTS OF BILE COLORED FLUID. SANTOS TO GRAVITY AND DRAINING LT. SHERICE-COLORED URINE. IVF OF NS INFUSING AT TKO RATE FOR IV ANTIBIOTIC TX. BILAT., SOFT, WRIST RESTRAINTS IN PLACE TO PREVENT POTENTIAL SELF EXTUBATION; RIKERS' SCALE 3-4.
--- NOTE | 2018-08-29 08:25 | NUR ---
FENTANYL 25MCG/IVT FOR PAIN; EYES OPENED; PATIENT RESTLESS AND NODDING YES THAT SHE IS IN PAIN (TO ABD.).
--- NOTE | 2018-08-29 08:40 | NUR ---
DR. ELIZONDO, HOSPITALIST, HERE; NO NEW ORDERS.
--- NOTE | 2018-08-29 10:40 | NUR ---
PROPOFOL INCREASED TO 30MCG/KG/MIN.; PATIENT MORE ALERT AND APPEARS RESTLESS.
--- NOTE | 2018-08-29 12:40 | NUR ---
DR. MURRAY ROUNDED AT 12:30; PLANS TO PUT PATIENT ON SPONT. BREATHING TRIAL THIS AFTERNOON. RN GAVE PATIENT FENTANYL 25MCG IVT FOR ABD./INCISIONAL DISCOMFORT. PATIENT ABLE TO NOD HEAD APPROPRIATELY TO ANSWER QUESTIONS; DRIFTS OFF TO SLEEP WHEN NOT DISTURBED. REMAINS ON 30MCG/KG/MIN OF PROPOFOL AND RIKERS' SCALE 3-4.
--- NOTE | 2018-08-29 13:27 | NUR ---
SPONTANEOUS BREATHING TRIAL ORDERED BY DR. MURRAY; RN INFORMED RESP. THERAPIST, PAIGE OSORIO.
--- NOTE | 2018-08-29 14:33 | NUR ---
PROPOFOL TURNED FROM 30MCG/KG/MIN TO 15MCG/KG/MIN; TO HAVE SBT SHORTLY.
--- NOTE | 2018-08-29 14:38 | NUR ---
PLACED ON SBT; SETTINGS: 8/5, RATE 8 AND FIO2 40%. PATIENT STAYING CALM ON PROPOFOL OF 15MCG/KG/MIN.; TOTAL RESP. RATE 20/MIN.
--- NOTE | 2018-08-29 15:24 | NUR ---
PLACED BACK ON A/C SETTINGS; PATIENT MORE RESTLESS AND RR UP TO 30/MIN. PROPOFOL INCREASED BACK TO 30MCG/KG/MIN.
[2018-08-29 15:42] LABS: Vancomycin, Trough 14.4 ug/mL (5.0-10.0)
--- NOTE | 2018-08-29 18:15 | NUR ---
SUMMARY: FENTANYL GIVEN 3 TIMES FOR INCISIONAL/ABDOMINAL DISCOMFORT. VENT. SETTINGS REMAIN WITH PREVIOUS A/C SETTINGS. PROPOFOL AT 30MCG/KG/MIN. 150ML OF GASTRIC SECRETIONS MEASURED (AMOUNT SINCE ARRIVING TO ICU YESTERDAY AFTERNOON. SANTOS DRAINED 950ML; LT SHERICE URINE. REMAINS NSR TO ST; AFEBRILE. FAMILY MEMBERS (SEVERAL) HAVE CALLED TO CHECK ON PATIENT. PATIENTS' BROTHER, TAIWO, TO VISIT TOMORROW. WILL REPORT TO ONCOMING RN.
--- NOTE | 2018-08-29 21:49 | NUR ---
PT INTUBATED. PROPOFOL FOR SEDATION. PT WAS WIDE AWAKE ON 30MCG OF PROPOFOL CLENCHING THE BEDRAIL WITH BOTH HANDS AND EYE'S WIDE. PT NODS YES TO PAIN. GAVE ULTRAM VIA OG AND INCREASED PROPOFOL TO 50MCG WHICH DID NOT HELP. SPOKE WITH DR. MURRAY ABOUT PT AND GOT ORDERS TO INCREASE FREQUENCY OF FENTANYL. AFTER FENTANYL PT IS A LITTLE MORE RELAXED. SHE STILL AROUSES EASILY TO VOICE ON 50MCG OF PROPOFOL. SEE ASSESSMENT.
[2018-08-30 04:27] LABS: Hemoglobin 7.3 g/dL (11.5-16.0); Mean Corpuscular HGB 29.9 pg (26.0-34.0); Mean Corpuscular HGB Conc 30.4 g/dL (31.5-36.5); Mean Corpuscular Volume 98 fL (80-100); Platelet Count 304 K/mm3 (150-400); RDW Coefficient Variation 19.8 % (11.7-14.2); RDW Standard Deviation 70.9 fL (35.1-46.3); Red Blood Cell Count 2.44 M/mm3 (3.80-5.20); White Blood Cell Count 8.34 K/mm3 (4.00-11.30)
[2018-08-30 04:45] LABS: Anion Gap 6 mmol/L (6-16); Blood Urea Nitrogen 25 mg/dL (8-24); Bun/Creatinine Ratio 39.7 (12.0-20.0); CO2, Blood 33 mmol/L (21-32); Calcium, Blood 7.9 mg/dL (8.5-10.1); Chloride, Blood 105 mmol/L (98-108); Creatinine, Blood 0.63 mg/dL (0.40-1.00); Glomerular Filtration Rate >60 (60-); Glucose, Blood 265 mg/dL (70-99); Potassium, Blood 3.2 mmol/L (3.5-5.5); Sodium, Blood 144 mmol/L (136-145)
[2018-08-30 05:32] LABS: BASOPHILS PERCENT MAN 0 % (0-2); EOSINOPHILS PERCENT MAN 0 % (0-6); LYMPHOCYTES ABSOLUTE MAN 0.25 K/mm3 (0.84-5.20); LYMPHOCYTES PERCENT MAN 3 % (21-46); METAMYELOCYTE ABSOLUTE MAN 0.08 K/mm3 (0.00-0.00); METAMYELOCYTE PERCENT MAN 1 % (0-0); MONOCYTES ABSOLUTE MAN 0.33 K/mm3 (0.16-1.47); MONOCYTES PERCENT MAN 4 % (4-13); MYELOCYTE ABSOLUTE MAN 0.08 K/mm3 (0.00-0.00); MYELOCYTE PERCENT MAN 1 % (0-0); NEUTROPHILS ABSOLUTE MAN 7.58 K/mm3 (1.96-9.15); SEG NEUTROPHILS PERCENT MAN 91 % (41-73); TOTAL CELLS COUNTED 100
[2018-08-30 05:34] LABS: PCO2 Arterial 43.5 mmHg (35-45); PO2 Arterial 76.9 mmHg (80-100)
--- NOTE | 2018-08-30 06:00 | NUR ---
SUMMARY PT INTUBATED AND SEDATED WITH PROPOFOL. AT THE BEGINING OF THE SHIFT PT WAS ANXIOUS AND WOULD NOD YES TO PAIN. SPOKE WITH DR. MURRAY AND FENTANYL FREQUENCY WAS INCREASED. PT REMAINED IRRITATED AND DIFFICULT TO SEDATE. AT 2320 WITH PROPOFOL AT 60MCG/KG/MIN PT'S L LEG AND ARM WERE TWITCHING. DR. MURRAY IN ROOM TO WITNESS. GAVE ATIVAN IN CASE IT WAS SEIZURE ACTIVITY AND EEG WAS ORDERED. BEFORE GIVING THE ATIVAN PT WOKE TO NAME AND MADE EYE CONTACT. AFTER ATIVAN PT DID QUIT TWITCHING. WAS ABLE TO COME BACK DOWN ON THE PROPOFOL AFTER GIVING THE ATIVAN AND WAS COMFORTABLE THE REST OF THE SHIFT. WOUND VAC TO MID ABD REMAINS INTACT WITH GOOD SEAL. NO SIGN OF DISTRESS THIS AM.
--- NOTE | 2018-08-30 07:50 | NUR ---
FAMILY: BROTHER CALLED FOR UPDATE. NOTIFIED OF NO CHANGES T/O THE NIGHT.
--- NOTE | 2018-08-30 07:51 | NUR ---
ASSUMED CARE: RECEIVED REPORT FROM VISH RN. PT ON VENT WITH SETTINGS @ AC/16/350/5/40% REPORT OF PT DOING WELL ON BREATHING TRIAL THIS AM, FOLLOWING COMMANDS. PROPOFOL CURRENTLY RUNNING AT 30 MCG/KG/MIN. VSS AT THIS TIME. NO DISTRESS NOTED. SOFT WRIST RESTRAINTS IN PLACE. WILL CONTINUE TO MONITOR AND ASSESS FURTHER.
--- NOTE | 2018-08-30 09:21 | NUR ---
EEG: MANAGER IN THE ROOM AT THIS TIME.
--- NOTE | 2018-08-30 10:22 | NUR ---
PROPOFOL & EEG: PROPOFOL TURNED OFF AT THIS TIME FOR EEG.
--- NOTE | 2018-08-30 13:19 | NUR ---
TUBE FEEDINGS: CALL OUT TO DR SANTIAGO TO SEE IF PT IS OK TO RECEIVE TUBE FEEDINGS. CALLED BACK TO STATE PT IS OK TO RECEIVE TUBE FEEDINGS. DR MURRAY NOTIFIED.
--- NOTE | 2018-08-30 14:46 | NUR ---
WOUND DRESSING: REMOVED WOUND VAC DRESSING AND LEFT OPEN TO AIR AT THIS TIME PER ORDERS.
[2018-08-30 16:13] LABS: Vancomycin, Trough 17.4 ug/mL (5.0-10.0)
--- NOTE | 2018-08-30 18:37 | NUR ---
SHIFT SUMMARY: NO ACUTE CHANGES NOTED T/O THE SHIFT. NO BM THIS SHIFT ADMINISTERED BOWEL CARE PER ORDERS. PROPOFOL HAS BEEN TURNED UP T/O THE DAY TO 40MCG/KG/MIN D/T PT WIDE AWAKE HAVING PAIN AND ANXIETY NOTED BY CHEWING ON THE ET TUBE, AND WAVING ARMS AROUND. RESTRAINTS IN PLACE TO PREVENT SELF EXTUBATION. VSS T/O THE SHIFT. WOUND VAC REMOVED PER ORDERS NOW OPEN TO AIR, NO DRAINAGE NOTED AT WOUND SITE. WILL CONTINUE TO MONITOR AND REPORT TO VISH RN.
--- NOTE | 2018-08-31 01:16 | NUR ---
PT WITH INCREASING AGITATION. PT NODS WHEN ASKED IF HAVING PAIN. PT MEDICATED WITH FENTANYL 50mcg. DIPROVAN TITRATED TO 50mcg/kg/min T/O THIS NOC THUS FAR. PT REPOSITIONED. CURRENTLY PT APPEARS MORE COMFORTABLE.
--- NOTE | 2018-08-31 04:00 | NUR ---
SEDATION OFF. ISAAC ODOM AT BEDSIDE. BEGINNING WEAN TRIAL.
--- NOTE | 2018-08-31 05:10 | NUR ---
PASSED WEAN: PT AWAKENED DURING WEAN AND FOLLOWED COMMANDS. PT TRIED TO TALK AND WAS UNABLE TO WRITE WORDS. PT UPDATED T/O WEAN AND WAS ORIENTED TO PLACE, TIME, CURRENT EVENTS, AND PLAN. PT BECAME TEARFUL AND ATTEMPTED, AGAIN, TO WRITE ON PAPER BUT BEGAN TO FALL ASLEEP. PT INFORMED OF RESEDATION AND PROPOFOL RESTARTED. VSS. WILL CONTINUE TO MONITOR.
--- NOTE | 2018-08-31 06:31 | NUR ---
END OF SHIFT: PT REQUIRED INCREASED SEDATION T/O NOC. PT AWAKENED OCCASIONALLY NODDING HEAD TO PAIN AND WAS GIVEN FENTANYL PER ORDER. PT OTHERWISE TOLERATED Q2' TURNS AND PASSED WEAN THIS AM. PT BECAME TEARFUL DURING WEAN WHEN ORIENTED AND UPDATED TO PLACE, SITUATION, AND TIME. PT'S BROTHER CALLED DURING EVENING AND WAS UPDATED. VITALS REMAIN STABLE. PROPFOL TITRATED T/O NOC AND REMAINS AT 50mcg/kg/min CURRENTLY. WILL REPORT OFF TO ONCOMING RN.
--- NOTE | 2018-08-31 07:32 | NUR ---
ASSUMED CARE: RECEIVED REPORT FROM NOC RN. UPON ENTERING ROOM. PT IS NOTED TO BE STABLE AT THIS TIME, NO DISTRESS NOTED. VENT SETTINGS ARE NOTED TO BE AC/16/350/5/35% WITH O2 SATS >92%. NO LABS NOTED TO BE DRAWN THIS AM, WILL DISCUSS WITH DR. HART AT THIS TIME. ABD WOUND IS NOTED TO HAVE NO CHANGES FROM PREVIOUS DAY SHIFT, REMAINS OPEN TO AIR /C NO DRAINAGE NOTED. ORDERS & LABS REVIEWED. WILL CONTINUE TO MONITOR AND ASSESS ARMAND,.
--- NOTE | 2018-08-31 09:10 | NUR ---
BREATHING TRIAL: PT ON PRESSURE SUPPORT AT THIS TIME. PROPOFOL ON HOLD AT THIS TIME. PT REMAINING RELAXED, APPEARS TO BE A/O, FOLLOWING COMMANDS AND ANSWERING YES OR NO QUESTIONS. NO DISTRESS NOTED AT THIS TIME. ORAL CARE ON HOLD AT THIS TIME.
[2018-08-31 09:27] LABS: BASOPHILS ABSOLUTE AUTO 0.01 K/mm3 (0.00-0.23); BASOPHILS PERCENT AUTO 0 % (0-2); EOSINOPHILS PERCENT AUTO 0 % (0-6); Hematocrit 24.7 % (33.0-51.0); Hemoglobin 7.3 g/dL (11.5-16.0); IMMATURE GRAN ABSOLUTE AUTO 0.34 K/mm3 (0.00-0.10); IMMATURE GRAN PERCENT AUTO 4 % (0-1); LYMPHOCYTES PERCENT AUTO 5 % (21-46); MONOCYTES ABSOLUTE AUTO 0.11 K/mm3 (0.16-1.47); MONOCYTES PERCENT AUTO 1 % (4-13); Mean Corpuscular HGB 29.3 pg (26.0-34.0); Mean Corpuscular HGB Conc 29.6 g/dL (31.5-36.5); Mean Corpuscular Volume 99 fL (80-100); Mean Platelet Volume 10.4 fL (9.1-12.4); NEUTROPHILS ABSOLUTE AUTO 6.89 K/mm3 (1.96-9.15); NEUTROPHILS PERCENT AUTO 89 % (41-73); Platelet Count 310 K/mm3 (150-400); RDW Coefficient Variation 19.6 % (11.7-14.2); RDW Standard Deviation 70.1 fL (35.1-46.3); Red Blood Cell Count 2.49 M/mm3 (3.80-5.20); White Blood Cell Count 7.75 K/mm3 (4.00-11.30)
[2018-08-31 09:44] LABS: Anion Gap 6 mmol/L (6-16); Blood Urea Nitrogen 20 mg/dL (8-24); Bun/Creatinine Ratio 34.7 (12.0-20.0); CO2, Blood 33 mmol/L (21-32); Calcium, Blood 7.8 mg/dL (8.5-10.1); Chloride, Blood 107 mmol/L (98-108); Creatinine, Blood 0.58 mg/dL (0.40-1.00); Glomerular Filtration Rate >60 (60-); Glucose, Blood 225 mg/dL (70-99); Potassium, Blood 3.3 mmol/L (3.5-5.5); Sodium, Blood 146 mmol/L (136-145)
--- NOTE | 2018-08-31 10:00 | NUR ---
EXTUBATION: PT EXTUBATED @ APPROX 0945. PT ABLE TO COUGH AND DEEP BREATH. EDUCATED PT ON IMPORTANCE OF COUGHING AND DEEP BREATHING. PT REQUESTING WATER, REMINDED OF DR MURRAY TELLING PT NOTHING TO EAT OR DRINK FOR AT LEAST 2 HOURS AFTER EXTUBATION. PT REQUESTING TO KNOW WHERE HER BROTHER IS STATING SHE THOUGH HE WAS GOING TO BE HERE, BECOMES VERY TEARFULL. CALLED BROTHER AND UPDATED ON PT CONDITION. PT EDUCATED INSPECTOR OUTSIDE STEAM DISTRIBUTION LIGHT. VSS AT THIS TIME. WILL CONTINUE TO MONITOR AND ASSESS T/O THE SHIFT.
[2018-08-31 10:17] LABS: Base Excess Venous 10.6 mmol/L; Bicarbonate Venous 33.2 mmol/L (24.0-30.0); PO2 Venous 56.8 mmHg (38-42); pH Blood Venous 7.47 (7.34-7.37)
--- NOTE | 2018-08-31 14:27 | NUR ---
OOB: PUT UP TO BSC THEN TO RECLINER WITH 2 PERSON ASSIST. PT REPORTED A LOT OF PAIN, BUT WAS ABLE TO TOLLERATE IT. HAD DIFFICULTY STANDING STREIGHT AND WAS A HEAVY 2 PERSON ASSIST.
--- NOTE | 2018-08-31 17:48 | NUR ---
SHIFT SUMMARY: PT WAS EXTUBATED THIS SHIFT AT APPROX 0945. PT HAS BEEN ENCOURAGED TO COUGH AND DEEP BREATH. HAS REMAINED ON 4L NC OF O2 T/O THE DAY. SOME DISCOMFORT NOTED T/O THE SHFIT R/T ABD SURGERY. PT HAS BEEN VERY RESTLESS MOVING SELF IN THE BED. WAS ABLE TO GET PT TO THE BSC AND THEN TO THE RECLINER WITH A 2 PERSON MAX PIVOT, PT WAS NOT ABLE TO STAND STREIGHT UP AND DID NOT APPEAR TO BE ABLE TO HOLD HER OWN WEIGHT FOR LONG. PT AND OT ORDERD. PT HAS BEEN A LITTLE TEARFULL THOUGHOUT THE SHIFT OFF AND ON D/T PAIN OR DISCOMFORT, AND STATES FRUSTRATION OF HOW LONG IT IS TAKING FOR HER TO HEAL. PT EDUCATED ON THE HEALING PROCESS AND ENCOURAGED TO WORK WITH PT & OT IN ORDER TO ASSIST IN HER HEALING. PT HAS APPEARED TO BE FORGETFUL AND POSSIBLY CONFUSED AT TIMES. CALL LIGHT IN REACH. BED IN LOWEST POSSITION, WILL CONTINUE TO MONITOR AND REPORT TO VISH RN.
--- NOTE | 2018-08-31 20:52 | NUR ---
ASSUMED PT CARE AT 1915 PT SITTING UP IN BED. ALERT AND ORIENTED; HOWEVER, MAKES NONSENSICAL STATEMENTS OCCASIONALLY. PT IS ON 3L VIA NC WITH OXYGEN SATURATIONS 93%. SOB NOTED WITH EXERTION. COACHED ON PURSED LIP BREATHING AND PT ABLE TO DEMONSTRATE WITH EASE OF BREATHING. AUDIBLE WHEEZING NOTED WITH COARSE LUNG SOUNDS AND WHEEZING T/O; DIMINISHED TO BILAT BASES; BREATHING TX ADMINISTERED BY RT. NSR TO SINUS TACHYCARDIA NOTED. ABDOMEN IS ROUND, MODERATELY DISTENDED, FIRM TO PALPATION WITH TENDERNESS NOTED TO BILATERAL SIDES. UMBILICAL INCISION IS [employer]ARM [employer]NER [employer]PER[employer] AND WELL APPROXIMATED; NO REDNESS OR WARMTH NOTED AROUND INCISION. BOWEL TONES ARE ACTIVE; PT RECEIVED MULTIPLE BOWEL CARE MEDS TODAY, INCLUDING AN ENEMA THAT WAS UNEFFECTIVE. PT DOES STATE SHE IS PASSING GAS. PICC LINE TO ROBERTO IS INFUSING NS AT 75MLS/HR; GRISSOM AND WHITE LUMENS RESISTANT AT FIRST, BUT ABLE TO FLUSH WITH 10CC NS EACH. PERIPHERAL PULSES ARE PALPABLE AND STRONG; NO EDEMA NOTED. SKIN IS COOL TO THE TOUCH. C/O 9/10 ABDOMINAL PAIN; PT ALREADY MEDICATED WITH FENTANYL AND ULTRAM SHORTLY BEFORE CHANGE OF SHIFT; THEREFORE, RECEIVED ORDERS FROM DR. MURRAY FOR APAP. ALSO INFORMED DR. MURRAY REGARDING POTASSIUM LEVEL THIS AM AND NO ORAL SUPPLEMENT WITH LASIX; NEW ORDERS FOR PO POTASSIUM 40MEQ. NO FAMILY AT BEDSIDE, BUT PT'S MOTHER CALLED; PT BECAME EMOTIONAL AFTER CONVERSATION. CALL LIGHT LEFT WITHIN REACH.
--- NOTE | 2018-08-31 21:52 | NUR ---
PT BECAME VERY ANXIOUS AND RESTLESS STATING SHE COULDN'T BREATHE. HOB ELEVATED TO 90 DEGREES; COACHED PT THORUGH PURSED LIP BREATHING AND CALLED RT FOR BREATHING TX. PT KEPT ASKING TO SIT ON EDGE OF BED AND WAS ATTEMPTING TO GET OUT OF BED. OXYGEN SATURATIONS DECREASED TO LOW 80'S; INCREASED OXYGEN UP TO 8L AND PLACED NC IN MOUTH PT WAS MOUTH BREATHING; UNEFFECTIVE. RT SHOWED UP AND BROUGHT FLUTTER VALVE WHILE ANOTHER RN CALLED DR. MCINTYRE AND RECEIVED ORDERS FOR ONE TIME DOSE OF ATIVAN 0.5MG IV AND BIPAP IF NEEDED. PT COUGHING UP MINIMAL AMOUNTS OF THICK, YELLOW SPUTUM; BUT NOT ABLE TO REALLY CLEAR SPUTUM EFFECTIVELY COUGH IS WEAK AND POSSIBLY IMPEDED D/T PAIN; PT NOTED TO HOLD HER RIGHT SIDE DURING COUGHING EPISODES. PLACED CALL TO DR. MURRAY WHO STATED SHE WAS COMING IN AND WOULD STOP BY TO SEE HER. ATIVAN APPEARED EFFECTIVE; PT RECEIVED A BREATHING TX AND RT CHANGED OUT NC TUBING TO HIFLOW NC WITH OXYGEN AT 6L; O2 SATURATIONS ARE CURRENTLY AT 95%.
--- NOTE | 2018-08-31 22:19 | NUR ---
DR. MURRAY AT BEDSIDE TO SEE PT
--- NOTE | 2018-08-31 22:33 | NUR ---
NEW ORDERS FOR BIPAP AND PRECEDEX GTT
[2018-09-01 03:32] LABS: BASOPHILS ABSOLUTE AUTO 0.01 K/mm3 (0.00-0.23); BASOPHILS PERCENT AUTO 0 % (0-2); EOSINOPHILS ABSOLUTE AUTO 0.01 K/mm3 (0.00-0.68); EOSINOPHILS PERCENT AUTO 0 % (0-6); Hematocrit 24.8 % (33.0-51.0); Hemoglobin 7.5 g/dL (11.5-16.0); IMMATURE GRAN ABSOLUTE AUTO 0.18 K/mm3 (0.00-0.10); IMMATURE GRAN PERCENT AUTO 3 % (0-1); LYMPHOCYTES ABSOLUTE AUTO 0.35 K/mm3 (0.84-5.20); LYMPHOCYTES PERCENT AUTO 5 % (21-46); MONOCYTES PERCENT AUTO 2 % (4-13); Mean Corpuscular HGB 30.2 pg (26.0-34.0); Mean Corpuscular HGB Conc 30.2 g/dL (31.5-36.5); Mean Corpuscular Volume 100 fL (80-100); Mean Platelet Volume 10.1 fL (9.1-12.4); NEUTROPHILS ABSOLUTE AUTO 6.06 K/mm3 (1.96-9.15); NEUTROPHILS PERCENT AUTO 90 % (41-73); Platelet Count 263 K/mm3 (150-400); RDW Coefficient Variation 19.2 % (11.7-14.2); RDW Standard Deviation 71.5 fL (35.1-46.3); Red Blood Cell Count 2.48 M/mm3 (3.80-5.20); White Blood Cell Count 6.71 K/mm3 (4.00-11.30)
--- NOTE | 2018-09-01 05:37 | NUR ---
END OF SHIFT SUMMARY PT HAS REMAINED ON HIFLOW NC BETWEEN 4-8L. PT HAS FRANTICALLY WOKEN UP FEELING SOB AND BECOMING VERY RESTLESS WITH OXYGEN SATURATIONS DECREASING TO LOW 80'S DURING EACH EPISODE. PT IS ABLE TO RECOVER WITH COACHING THROUGH PURSED LIP BREATHING AND COUGHING TECHNIQUES USING FLUTTER VALVE. PRECEDEX GTT TITRATED BETWEEN 0.2 TO 0.7MCG/KG/HR. PT WILL DRIFT OFF TO SLEEP AND WAKE AGAIN WITH THE SAME CYCLE. ATTEMPTED BIPAP MASK MULTIPLE TIMES; PT WILL TOLERATE FOR A SHORT WHILE AND THEN REMOVE THE MASK. ADMINISTERED FENTANYL PER ORDERS, WHICH APPEARED EFFECTIVE AND PT WAS ABLE TO TOLERATE BIPAP MASK. MENTATION HAS STAYED ABOUT BASELINE AFTER ATIVAN DOSE GIVEN EARLIER IN THE SHIFT. PT WAS NOTED TO HAVE VISUAL HALLUCINATIONS X2 WITH NONSENSICAL STATEMENTS AND MUMBLING NOTED T/O SHIFT. HOWEVER, SHE IS ABLE TO STATE WHO SHE IS, WHERE SHE IS, AND HER BIRTHDAY. SHE IS FORGETFUL OF TIME AND NEEDS REMINDERS TO WHY SHE CAME TO THE HOSPITAL. SHE KEEPS STATING IT'S DUE TO HER "COPD". REMINDED OF ABDOMINAL SURGERY AND RESP DISTRESS THAT LEAD TO INTUBATION. UNABLE TO ASSESS RECEPTIVENESS PT JUST REMAINS RESTLESS WHEN AWAKE, EVEN WITH PRECEDEX GTT ON. NO FAMILY AT BEDSIDE. CALL LIGHT WITHIN REACH; HOWEVER, PT DOESN'T USE IT TO CALL FOR ASSISTANCE; THEREFORE, REQUIRES FREQUENT VISUAL CHECKS. WILL CONTINUE TO MONITOR UNTIL REPORT HANDED OFF TO ONCOMING RN.
--- NOTE | 2018-09-01 06:22 | NUR ---
TURNED OFF PRECEDEX GTT D/T FENTANYL BEING MORE EFFECTIVE. PT IS BEING COMPLIANT WITH BIPAP MASK WITH 50MCG OF FENTANYL RATHER THAN PRECEDEX MAXED AT 0.7MCG/KG/HR. WILL CONTINUE TO MONTIOR WITH PRECEDEX ON STANDBY AND REPORT OFF TO ONCOMING RN REGARDING CHANGES.
--- NOTE | 2018-09-01 09:36 | NUR ---
RESPRATORY DISTRESS & RESTRAINTS: PT IN RESPRATORY DISTRESS. INCREASED DIFFICULTY KEEPING O2 SATURATIONS UP EVEN WITH FOCUSED PURSED LIP BREATHING. PT EDUCATED TO STOP MOVING AND TALKING IN ORDER TO FOCUS ON HER BREATHING. PT IS ABLE TO COUGH WHEN INSTRUCTED WHICH ASSISTS IN BRINGING O2 SATS UP TO 86% FROM 84%. PT IS UNABLE TO FOLLOW DIRECTION TO STOP MOVING AND TALKING, INCREASED RESPIRATIONS, LUNG SOUNDS ARE DEMINISHED AND PT APPEARS UNABLE TO CATCH HER BREATH. PT IS ALSO NOTED TO BE HALUCINATING. BIPAP PUT IN PLACE. PT ATTEMPTS TO REMOVE MASK SEVERAL TIMES SO RESTRAINTS WERE PUT IN PLACE. PT IS EDUCATED ON THE REASON FOR RESTRAINTS. SATS ARE NOTED TO COME UP TO 97% AFTER A SHORT TIME OF BEING ON THE BIPAP. WILL CONTINUE TO MONITOR AND ASSESS FURTHER.
[2018-09-01 13:34] LABS: Anion Gap 5 mmol/L (6-16); Blood Urea Nitrogen 16 mg/dL (8-24); Bun/Creatinine Ratio 34.3 (12.0-20.0); CO2, Blood 31 mmol/L (21-32); Calcium, Blood 7.7 mg/dL (8.5-10.1); Chloride, Blood 104 mmol/L (98-108); Creatinine, Blood 0.47 mg/dL (0.40-1.00); Glomerular Filtration Rate >60 (60-); Glucose, Blood 97 mg/dL (70-99); Phosphorus, Blood 3.7 mg/dL (2.5-4.9); Sodium, Blood 140 mmol/L (136-145)
[2018-09-01 13:42] LABS: Percent Saturation 5.4 % (15.0-50.0)
--- NOTE | 2018-09-01 17:58 | NUR ---
SHIFT SUMMARY: EARLIER IN THE SHIFT PT HAD SOME RESPRATORY DISTRESS WAS PLACED ON BIPAP AND HAD TO BE RESTRAINED D/T NOT BEING ABLE TO TOLLERATE. RESTRAINTS REMOVED AT 1400 AND PT WAS ABLE TO KEEP THE BIPAP ON INDEPENDENTLY FOR APPROX AN HOUR. PT GIVEN A BRAKE FROM THE BIPAP AND EDUCATED THAT SHE WILL NEED TO WEAR T/O THE NIGHT. PT HAS BEEN MEDICATED FOR PAIN T/O THE DAY. VSS STABLE T/O THE DAY. ATTEMPTED TO UPDATE BROTHER, BUT UNABLE TO REACH BY PHONE. UPDATED THIS PM WHEN CAME IN TO VISIT. PT GIVEN BEDBATH AND TRANSFERED TO THE RECLINER BY LIFT. X-RAY WAS DONE TO INSURE PT DID NOT HAVE A BOWEL OBSTRUCTION, NO OBSTRUCTION NOTED, BUT LARGE AMOUNT OF STOOL VISUALIZED BY DR MURRAY. ENEMA GIVEN, BUT NO BM THIS SHIFT. CALL LIGHT IN REACH. PT WATCHING TV AT THIS TIME. WILL CONTINUE TO MONITOR AND REPORT TO ONCOMING RN.
--- NOTE | 2018-09-01 22:38 | NUR ---
ASSUMED PT CARE AT 1915 PT SLEEPING IN BED WITH BIPAP ON; 03/21; FIO2 30%. OXYGEN SATURATIONS >93% UPON CHANGE OF SHIFT. PT MADE NPO ON DAY SHIFT UNTIL EVAULATED BY SPEECH THERAPY. UPON PT AWAKENING SHE REQUESTED WATER AND WAS REMINDED OF NPO STATUS, BUT ORAL CARE WAS DONE WITH MOISTURIZER APPLIED. PT TOOK BIPAP MASK OFF SHORTLY AFTER WAKING UP AND PLACED BACK ON HIFLOW NC AT 5L WITH OXYGEN SATURATIONS REMAINING GREATER THAN 92%. PT CONTINUES TO COUGH UP THICK, YELLOW SPUTUM. LUNG SOUNDS ARE COARSE T/O AND DIMINISHED TO BILATERAL BASES. SANTOS CATH IS PATENT AND DRAINING TO GRAVITY. STILL NO BM RESULTS AFTER ENEMA'S. SPOKE WITH DR. MURRAY ABOUT POSSIBLY IV REGLAN D/T PT BEING NPO; DR. MURRAY DECLINED AND STATED WE WILL JUST CONTINUE WITH THE ENEMAS. NO FAMILY AT BEDSIDE AT THIS TIME. CALL LIGHT IS WITHIN REACH, BUT PT IS UNABLE TO UTILIZE CALL LIGHT APPROPRIATELY; WILL CONTINUE CHECKING AND MONITORING PT FREQUENTLY.
[2018-09-02 04:37] LABS: Hematocrit 27.6 % (33.0-51.0); Hemoglobin 8.3 g/dL (11.5-16.0); Mean Corpuscular HGB 29.5 pg (26.0-34.0); Mean Corpuscular HGB Conc 30.1 g/dL (31.5-36.5); Mean Corpuscular Volume 98 fL (80-100); Mean Platelet Volume 10.3 fL (9.1-12.4); Platelet Count 262 K/mm3 (150-400); RDW Coefficient Variation 19.3 % (11.7-14.2); Red Blood Cell Count 2.81 M/mm3 (3.80-5.20); White Blood Cell Count 13.93 K/mm3 (4.00-11.30)
[2018-09-02 05:02] LABS: Alanine Aminotransfer (ALT/SGP 41 U/L (12-78); Albumin/Globulin Ratio 0.5 (0.8-1.8); Alk Phos 78 U/L (50-136); Anion Gap 7 mmol/L (6-16); Aspartate Aminotrans (AST/SGOT 54 U/L (12-37); Bilirubin, Total 0.3 mg/dL (0.1-1.0); Blood Urea Nitrogen 17 mg/dL (8-24); Bun/Creatinine Ratio 37.2 (12.0-20.0); CO2, Blood 30 mmol/L (21-32); Chloride, Blood 103 mmol/L (98-108); Creatinine, Blood 0.46 mg/dL (0.40-1.00); Globulin, Blood 3.7 g/dL (2.2-4.0); Glomerular Filtration Rate >60 (60-); Glucose, Blood 109 mg/dL (70-99); Potassium, Blood 4.2 mmol/L (3.5-5.5); Sodium, Blood 140 mmol/L (136-145); Total Protein, Blood 5.7 g/dL (6.4-8.2)
[2018-09-02 05:36] LABS: BASOPHILS PERCENT MAN 0 % (0-2); EOSINOPHILS PERCENT MAN 0 % (0-6); LYMPHOCYTES ABSOLUTE MAN 0.27 K/mm3 (0.84-5.20); LYMPHOCYTES PERCENT MAN 2 % (21-46); MONOCYTES ABSOLUTE MAN 0.13 K/mm3 (0.16-1.47); MONOCYTES PERCENT MAN 1 % (4-13); MYELOCYTE ABSOLUTE MAN 0.13 K/mm3 (0.00-0.00); MYELOCYTE PERCENT MAN 1 % (0-0); NEUTROPHILS ABSOLUTE MAN 13.37 K/mm3 (1.96-9.15); SEG NEUTROPHILS PERCENT MAN 96 % (41-73); TOTAL CELLS COUNTED 100
--- NOTE | 2018-09-02 05:48 | NUR ---
END OF SHIFT SUMMARY PT HAD A MUCH BETTER NIGHT THAN THE NIGHT BEFORE. NO EPISODES OF RESPIRATORY DISTRESS. PT ONLY WENT ON THE BIPAP ONCE D/T HER TO WANTING TO GO TO SLEEP, BUT WASN'T ABLE TO TOLERATE IT AND ASKED TO GO BACK ON THE NC. PT HAS BEEN TITRATED BETWEEN 5-7L OF OXYGEN VIA HIFLOW NC T/O NIGHT. WHEN PT WAS WEARING THE BIPAP SHE WOULD HAVE PERIODS OF APNEA AND THEN GASP FOR AIR AND THAT IS WHEN SHE COULD NO LONGER TOLERATE WEARING IT. CALLED RT, WHO CAME AND CHANGED A FEW SETTINGS, WHICH APPEARED BETTER; HOWEVER, PT STATED SHE WOULD RATHER WEAR A CPAP THAN THE BIPAP. PT DIDN'T SLEEP AT ALL. SHE WAS ASLEEP UPON START OF SHIFT, BUT HASN'T FALLEN ASLEEP SINCE. PT WAS ASSISTED UP TO BSC; SCANT AMOUNT OF LIQUID BM IN TOILET. ATTEMPTED SUPPOSITORY. WHILE INSERTING SUPPOSITORY THERE WAS NO BM NOTED IN ANUS. PT C/O TENDERNESS TO ABDOMEN UPON PALPATION; ACTIVE BT ARE NOTED. PT REMAINS NPO UNTIL SPEECH THERAPY CAN EVAULATE. ALL PO MEDS HELD. FREQUENT ORAL CARE PERFORMED AND MOUTH SWABS GIVEN. PT WAS ASSISTED UP TO CHAIR. HOWEVER, PT IS A HEAVY, HEAVY TWO PERSON ASSIST. SHE CAN BARELY STAND AND WAS SITTING ON THE EDGE OF THE BED SLIDING. SHE REQUIRED THREE OF US TO ASSIST HER INTO BED TO PREVENT A FALL. SHE DOES NOT FOLLOW COMMANDS WHEN ASKED TO PUSH OFF OF COMMODE OR CHAIR. SHE JUST LEANS FORWARD AND WILL NOT STRAIGHTEN HER LEGS TO HELP IN ANYWAY. PT NEEDS TO BE TRANFERRED VIA LIFT UNTIL THERAPY CAN WORK WITH PT ON STRENGTH TRAINING AND SAFE TRANSFERS. UNSURE OF WHAT PT'S BASLINE WAS PRIOR TO ADMIT. HER MENTATION IS STILL "FOGGY" SHE KEEPS STATING SHE CAME HERE D/T "HER NOT FEELING GOOD". WHEN ASKED TO ELABORATE, SHE WILL JUST MAKE A BROAD STATEMENT ABOUT NEEDING TO GET BETTER. PT REMINDED SEVERAL TIMES WHAT KIND OF SURGERY SHE HAD DONE. SHE ACKNOWLEDGES THAT SHE HAD SURGERY, BUT TELLS ME NOT TO EXPECT HER TO REMEMBER SHE HAS HAD A LOT OF SURGERIES IN THE PAST. PT SPEECH NOT GARBLED AND PT IS MAKING FEWER NONSENSICAL STATEMENTS. STILL FORGETFUL OF YEAR AND WHAT KIND OF FACILITY SHE IS IN, BUT HER THOUGHT PROCESSES AND STATEMENTS ARE MORE CONCRETE. CALL LIGHT IN REACH AND PT IS NOW ABLE TO UTILIZE CALL LIGHT APPROPRIATELY.
--- NOTE | 2018-09-02 07:20 | NUR ---
ASSUMED CARE OF PATIENT; SEE ASSESSMENT CHARTING FOR DETAILS. PATIENT AWAKE; ORIENTED TO SELF, PLACE AND ABLE TO FOLLOW DIRECTIONS. REMAINS NPO TIL SWALLOW EVAL DONE LATER THIS AM. SANTOS TO GRAVITY AND DRAINING MODERATE AMOUNTS OF MED. YELLOW URINE. LUNGS COARSE WITH SOME WHEEZES INTERMITTENTLY; MOIST PRODUCTIVE COUGH OF MED. MCKEON MUCUS. FLUTTER VALVE AT BEDSIDE AND RN ASSISTING PATIENT WITH USE. C/O PAIN FROM ABD. INCISION (OPENED TO AIR, WELL PROXIMATED AND NO S/SX OF INFECTION OR DRAINAGE). OXYGEN AT 4-5L/ HIGH FLOW NASAL CANNULA; BIOX. MID 90'S. WILL HOLD ORAL MEDS. D/T NPO TIL SWALLOW EVAL. COMPLETED. NS INFUSING AT 75ML/HR. OVERALL STATUS IMPROVED. CONT. WITHOUT STOOL.
--- NOTE | 2018-09-02 09:30 | NUR ---
PHYSICAL THERAPY HERE; PLACED GAIT BELT AND ASSISTED PATIENT TO DANGLE POSITION. RN AND P.T. ASSISTED PATIENT TO STANDING POSITION; PATIENT UNABLE TO BEAR WT OR STANDUP STRAIGHT; BACK TO BED TO PREVENT FALL. T/C FROM PATIENTS' BROTHER EARLIER, THIS AM. HE STATES PATIENT HAS BECOME WEAKER AND REQUIRES A WALKER AT HOME AND HAS MULTIPLE FALLS. HE WILL BE IN, AFTER WORK, TO SEE PATIENT.
--- NOTE | 2018-09-02 10:00 | NUR ---
SPEECH THERAPIST, RAQUEL, IN TO EVAL. PATIENT. SEE THERAPY NOTES. PO MEDS ARE TO BE CRUSHED AND PLACED IN APPLESAUCE BEFORE GIVING TO PATIENT. PATIENT ALSO TO BE FED, WITH SPOON, NECTAR THICK/PUREED FOODS; NO STRAWS OR CUPS.
--- NOTE | 2018-09-02 10:25 | NUR ---
DR. WORTHY CHANGED PATIENT TO PCU STATUS; IVF'S DC'D AND MEDICATIONS ADJUSTED; SEE ORDERS.
--- NOTE | 2018-09-02 11:50 | NUR ---
DR. GUILLEN IN; AGREEABLE TO TRANSFER TO PCU; SEE ORDERS. OCCUPATIONAL THERAPIST ALSO HERE; DANGLED PATIENT; SEE THERAPY NOTES.
--- NOTE | 2018-09-02 14:00 | NUR ---
FENTANYL FOR PAIN; GAVE PO ULTRAM, EARLIER, WITH MINIMAL PAIN CONTROL. PATIENT RESTLESS. COUGH MOIST AND PRODUCTIVE. RN WORKING FREQUENTLY WITH PATIENT ON I.S. AND FLUTTER VALVE.
--- NOTE | 2018-09-02 18:00 | NUR ---
SUMMARY: REQUIRES REST PERIODS IN BETWEEN SPOONED BITES, BY RN; EXERTIONAL DYSPNEA; VERY LIMITED ENDURANC; BIOX. DROPS DOWN TO 80'S QUICKLY WITH HIGH FLOW OXYGEN AT 4-5LMIN. SANTOS CATH. REMAINS IN PLACE D/T DIURETIC THERAPY AND DIFFICULTY GETTING ON/OFF BEDPAN D/T EXERTIONAL DYSPNEA. UNABLE TO GET UP TO BSC; MUST USE CEILING LIFT FOR TRANSFERS FROM BED TO RECLINER; UNABLE TO STAND UPRIGHT, EVEN WITH 2 PERSON ASSIST. AND GAIT BELT IN PLACE. PCU STATUS BUT NO ROOMS, WITH LIFT, AVAILABLE AT THIS TIME.
--- NOTE | 2018-09-02 20:15 | NUR ---
HANDOFF: REPORT RECIEVED FROM DAYSHIFT RN, PATIENT ALERT AND ORIENTED AND C/O CONSTIPATION. ORDERS RECIEVED FOR AN ENEMA WHICH PATIENT STATES SHE DOES NOT WANT DONE UNTIL THE DAYTIME.
--- NOTE | 2018-09-03 00:37 | NUR ---
ASSUMED CARE OF PATIENT, PATIENT ANSWERING QUESTIONS APPROPRIATELY, BUT FORGETFUL. LUNG SOUNDS COARSE T/O WITH MOIST COUGH. EXPLAINED NEED FOR BIPAP AND AFTER UDN AND ORAL CARE BIPAP PLACED. USING 9L/NC WHEN OFF BIPAP. PATIENT TOSHIA THICKENED LIQUID WITHOUT DIFFICULTY. ABD INCISION CD&I OPEN TO AIR
[2018-09-03 04:24] LABS: BASOPHILS PERCENT AUTO 0 % (0-2); EOSINOPHILS PERCENT AUTO 0 % (0-6); Hematocrit 24.5 % (33.0-51.0); Hemoglobin 7.4 g/dL (11.5-16.0); IMMATURE GRAN ABSOLUTE AUTO 0.33 K/mm3 (0.00-0.10); IMMATURE GRAN PERCENT AUTO 2 % (0-1); LYMPHOCYTES ABSOLUTE AUTO 0.28 K/mm3 (0.84-5.20); LYMPHOCYTES PERCENT AUTO 2 % (21-46); MONOCYTES ABSOLUTE AUTO 0.26 K/mm3 (0.16-1.47); MONOCYTES PERCENT AUTO 2 % (4-13); Mean Corpuscular HGB 29.2 pg (26.0-34.0); Mean Corpuscular HGB Conc 30.2 g/dL (31.5-36.5); Mean Corpuscular Volume 97 fL (80-100); Mean Platelet Volume 10.3 fL (9.1-12.4); NEUTROPHILS ABSOLUTE AUTO 12.97 K/mm3 (1.96-9.15); NEUTROPHILS PERCENT AUTO 94 % (41-73); Platelet Count 204 K/mm3 (150-400); RDW Coefficient Variation 19.3 % (11.7-14.2); RDW Standard Deviation 68.3 fL (35.1-46.3); Red Blood Cell Count 2.53 M/mm3 (3.80-5.20); White Blood Cell Count 13.84 K/mm3 (4.00-11.30)
[2018-09-03 04:48] LABS: Alanine Aminotransfer (ALT/SGP 33 U/L (12-78); Albumin, Blood 1.7 g/dL (3.4-5.0); Albumin/Globulin Ratio 0.5 (0.8-1.8); Alk Phos 66 U/L (50-136); Anion Gap 4 mmol/L (6-16); Aspartate Aminotrans (AST/SGOT 41 U/L (12-37); Bilirubin, Total 0.2 mg/dL (0.1-1.0); Blood Urea Nitrogen 15 mg/dL (8-24); Bun/Creatinine Ratio 30.4 (12.0-20.0); CO2, Blood 33 mmol/L (21-32); Calcium, Blood 8.1 mg/dL (8.5-10.1); Chloride, Blood 102 mmol/L (98-108); Creatinine, Blood 0.49 mg/dL (0.40-1.00); Globulin, Blood 3.6 g/dL (2.2-4.0); Glomerular Filtration Rate >60 (60-); Glucose, Blood 169 mg/dL (70-99); Magnesium, Blood 2.1 mg/dL (1.6-2.4); Potassium, Blood 4.3 mmol/L (3.5-5.5); Sodium, Blood 139 mmol/L (136-145); Total Protein, Blood 5.3 g/dL (6.4-8.2)
--- NOTE | 2018-09-03 06:10 | NUR ---
SUMMARY PATIENT SLEEPING WITH BIPAP IN PLACE SET AT 12/6 WITH FIO2 TITRATED UP TO 50% LUNG SOUNDS CONTINUE TO BE COARSE T/O WITH MOIST COUGH. PATIENT ON 9L/NC WHEN OFF BIPAP AND APPEARS SOB WITH SLIGHT ACTIVITY. ABD INCISION REMAINS CD&I. PATIENT CONTINUES TO C/O ABD PAIN MEDICATED WITH PRN FENTANYL.
--- NOTE | 2018-09-03 09:52 | NUR ---
PT SLEEPING SOUNDLY, SOMEWHAT DIFFICULT TO AROUSE, BUT ONCE AWAKE PT ANSWERS QUESTIONS APPROPRIATE. PT PLACED ON 9L VIA HIGH FLOW. WITHIN MINS PT SATS DROPPED INTO LOW 80'S, LUNGS VERY TIGHT T/T WITH INSP AND EXP WHEEZES T/O, RESP 30-40, WITH SKIN COLOR CHANGE TO DUSKY. BIPAP IMMEDIATELY REPLACED. LUNGS SOUNDS AND SATS IMPROVED SHORTLY THEREAFTER. DR GUILLEN AT BEDSIDE, CHEST XRAY ORDERED AND COMPLETED. LASIX 40MG IVP GIVEN PER DR GUILLEN. NPO MEDS HELD FOR NOW; DR GUILLEN AWARE. WILL KEEP PT NPO UNTIL IMPROVED.
--- NOTE | 2018-09-03 13:04 | NUR ---
PT PLACED ON 9L VIA HIGHFLO FOR BREAK. SATS 90% FOR THE FIRST 10MIN, THEN STARTED TO DROP INTO HIGH 80'S, RESP LABORED AND SHALLOW, RHONCHI/COARSE T/O WITH WEAK NON-PRODUCTIVE COUGH. BIPAP REPLACED. UDN WAS GIVEN PRIOR TO BREAK, 1200CC URINE EMPTIED FROM CATHETER. PT RESTLESS, FREQUENT REQUESTS MADE WITH HIGH-PITCHED DRAWN OUT SPEECH, PT FLAILS ARMS AND INADVERTENTLY PULLS BIPAP OFF; WHEN ASKED WHAT HER NEEDS ARE, PT UNABLE TO ANSWER AT TIMES.
--- NOTE | 2018-09-03 17:50 | NUR ---
PT OOB TO CHAIR AROUND 1600. PT SATS AND RESP HAD IMPROVED THE SHIFT PROGRESSED. LIFT USED TO MOVE PT; PT RELUCTANT TO MOVE TO CHAIR, WANTING TO STAY IN BED IMMOBILE ALL DAY, BUT AGREED THAT SITTING IN CHAIR AND MOVING WOULD HELP HER HEAL FASTER. PT ALSO C/O PAIN "EVERYWHERE" T/O SHIFT (ON AVERAGE EVERY HOUR). CNVI 0/5 FOR MOST OF THE SHIFT. PT SITTING UP IN CHAIR NOW WATCHING TV, BREATHING UNLABORED, ABLE TO HAVE A CONVERSATION, SMILES, AND LAUGHS. PT FED YOGURT, APPLESAUCE, AND DINNER TRAY BY GEAR TESTER W/O PROBLEMS (I.E. NO COUGHING, DECREASE IN SATS ETC). ABD INCISION CDI. PT SATS 93% ON 9L HIGHFLOW N/C. PT HAS RHONCHI AND SCATTERED WHEEZES T/O; IMPROVED FROM THIS AFTERNOON. LASIX WAS GIVEN THIS AM WITH GOOD URINE OUTPUT FOLLOWING.
--- NOTE | 2018-09-03 20:08 | NUR ---
PATIENT TRANSFERRED TO BED FROM CHAIR USING CEILING LIFT. PATIENT SOB WITH ACTIVITY REMAINS ON 9L/NC. STRONG MOIST COUGH WITH WHITE SPUTUM. PATIENT C/O GENERALIZED PAIN CHRONIC IN NATURE REQUESTING PAIN MEDICATION AND SOME ICE CREAM. ABD SOFT AND ROUND INCISION SITE OPEN TO AIR WITH NO REDNESS OR SWELLING SEEN. PATIENT ASSISTED WITH ORANGE SHERBET AND FENTANYL IV GIVEN FOR PAIN. PLAN TO GIVE ULTRAM WITH HS MEDS.
[2018-09-04 03:39] LABS: BASOPHILS ABSOLUTE AUTO 0.01 K/mm3 (0.00-0.23); BASOPHILS PERCENT AUTO 0 % (0-2); EOSINOPHILS PERCENT AUTO 0 % (0-6); Hematocrit 25.1 % (33.0-51.0); Hemoglobin 7.6 g/dL (11.5-16.0); IMMATURE GRAN ABSOLUTE AUTO 0.11 K/mm3 (0.00-0.10); IMMATURE GRAN PERCENT AUTO 1 % (0-1); LYMPHOCYTES PERCENT AUTO 3 % (21-46); MONOCYTES ABSOLUTE AUTO 0.24 K/mm3 (0.16-1.47); MONOCYTES PERCENT AUTO 2 % (4-13); Mean Corpuscular HGB 29.8 pg (26.0-34.0); Mean Corpuscular HGB Conc 30.3 g/dL (31.5-36.5); Mean Corpuscular Volume 98 fL (80-100); Mean Platelet Volume 10.8 fL (9.1-12.4); NEUTROPHILS ABSOLUTE AUTO 9.24 K/mm3 (1.96-9.15); NEUTROPHILS PERCENT AUTO 93 % (41-73); Platelet Count 172 K/mm3 (150-400); RDW Coefficient Variation 19.3 % (11.7-14.2); RDW Standard Deviation 69.6 fL (35.1-46.3); Red Blood Cell Count 2.55 M/mm3 (3.80-5.20)
[2018-09-04 03:57] LABS: Anion Gap 4 mmol/L (6-16); Blood Urea Nitrogen 18 mg/dL (8-24); Bun/Creatinine Ratio 36.7 (12.0-20.0); CO2, Blood 36 mmol/L (21-32); Calcium, Blood 8.3 mg/dL (8.5-10.1); Chloride, Blood 98 mmol/L (98-108); Creatinine, Blood 0.49 mg/dL (0.40-1.00); Glomerular Filtration Rate >60 (60-); Glucose, Blood 221 mg/dL (70-99); Phosphorus, Blood 4.6 mg/dL (2.5-4.9); Potassium, Blood 4.3 mmol/L (3.5-5.5); Sodium, Blood 138 mmol/L (136-145)
[2018-09-04 04:34] LABS: PCO2 Arterial 57.6 mmHg (35-45); PO2 Arterial 68.9 mmHg (80-100); pH Blood Arterial 7.41 (7.35-7.45)
--- NOTE | 2018-09-04 05:48 | NUR ---
SUMMARY PATIENT SLEEPING WITH BIPAP IN PLACE SET AT 12/6 WITH FIO2 50% FROM APROX 2300- NOW. WHEN OFF BIPAP PATIENT ON 9L/NC. STRONG COUGH WITH WHITE SPUTUM. PATIENT TOSHIA THICKENED LIQUIDS WITH SPOON WELL, ABLE TO FEED SELF WITH CLOSE OBSERVATION. TOSHIA PO MEDS WHOLE WITH APPLESAUCE. ABD WOUND CD&I WITH NO REDNESS OR SWELLING.
--- NOTE | 2018-09-04 18:30 | NUR ---
A&OX4, C/O PAIN "ALL OVER." TYLENOL AND TRAMADOL GIVEN WITH PAIN RELIEF. GENERALIZED WEAKNESS, UNABLE TO STAND/BEAR WEIGHT. UP TO CHAIR FROM [phone] TODAY. BP STABLE, NSR WITH HR 80-90'S. 02 VIA NC @ 9 L. PT SLEPT THIS AFTERNOON WITH SPO2 97%, O2 TITRATED DOWN TO 8 L/MIN. OFF BIPAP ALL SHIFT. LS CLEAR UPPERS, COARSE/DIM BASES. 40 MG LASIX GIVEN IV WITH IMPROVEMENT. ATE 50% BREAKFAST AND DINNER. BLOOD SUGAR CONTROLLED ACHS. SANTOS IN PLACE, URINE OUTPUT. STATUS CHANGED TO PCU.
--- NOTE | 2018-09-04 22:29 | NUR ---
ASSUMING CARE RECEIVED PT REPORT FROM BARTOLOME VILLAFANA. PT IS ALERT AND ORIENTED AT THE TIME CARE ASSUMED. PT ON 9L O2 VIA HFNC WITH SPO2 IN THE 90'S. PT WILL OCCASIONALLY DESATURATE WHILE SPEAKING OR SLEEPING. BIPAP IN ROOM AT BEDSIDE. PT HR IS IN THE 80-90'S WITH BP IN THE 110-120 RANGE. PT HAS MIDLINE ABDOMINAL INSCISION THAT IS OPEN TO AIR AND APPEARS TO BE HEALING WELL. PT HAS SANTOS CATH IN PLACE, CURRENTLY PATENT AND DRAINING CLEAR YELLOW URINE. PT IS RECEIVNG THICKENED LIQUIDS AND APPEARS TO BE TOLERATING CRUSHED PILLS IN APPLE SAUCE WELL. PT IS SALINE LOCKED AT THIS TIME. ASSUEMD CARE OF PT AT THE TIME OF SHIFT REPORT. WILL CONTINUE TO MONITOR PT.
[2018-09-05 03:54] LABS: BASOPHILS ABSOLUTE AUTO 0.01 K/mm3 (0.00-0.23); BASOPHILS PERCENT AUTO 0 % (0-2); EOSINOPHILS PERCENT AUTO 0 % (0-6); Hematocrit 25.1 % (33.0-51.0); Hemoglobin 7.5 g/dL (11.5-16.0); IMMATURE GRAN ABSOLUTE AUTO 0.07 K/mm3 (0.00-0.10); IMMATURE GRAN PERCENT AUTO 1 % (0-1); LYMPHOCYTES ABSOLUTE AUTO 0.33 K/mm3 (0.84-5.20); LYMPHOCYTES PERCENT AUTO 3 % (21-46); MONOCYTES ABSOLUTE AUTO 0.27 K/mm3 (0.16-1.47); MONOCYTES PERCENT AUTO 2 % (4-13); Mean Corpuscular HGB 28.8 pg (26.0-34.0); Mean Corpuscular HGB Conc 29.9 g/dL (31.5-36.5); Mean Corpuscular Volume 97 fL (80-100); NEUTROPHILS ABSOLUTE AUTO 10.88 K/mm3 (1.96-9.15); NEUTROPHILS PERCENT AUTO 94 % (41-73); Platelet Count 201 K/mm3 (150-400); RDW Coefficient Variation 19.3 % (11.7-14.2); RDW Standard Deviation 67.2 fL (35.1-46.3); White Blood Cell Count 11.56 K/mm3 (4.00-11.30)
[2018-09-05 04:16] LABS: Anion Gap 5 mmol/L (6-16); Blood Urea Nitrogen 21 mg/dL (8-24); CO2, Blood 35 mmol/L (21-32); Calcium, Blood 8.5 mg/dL (8.5-10.1); Chloride, Blood 98 mmol/L (98-108); Glomerular Filtration Rate >60 (60-); Glucose, Blood 196 mg/dL (70-99); Magnesium, Blood 2.1 mg/dL (1.6-2.4); Phosphorus, Blood 4.8 mg/dL (2.5-4.9); Potassium, Blood 4.6 mmol/L (3.5-5.5); Sodium, Blood 138 mmol/L (136-145)
--- NOTE | 2018-09-05 07:35 | NUR ---
ASSUMED CARE: PT SITTING UPRIGHT IT BED, 9L O2 VIA HIGH FLOW NC, SATTING 87%. INCREASED TO 10L. RT AT BEDSIDE PERFORMING ABG. PT C/O ORAL PAIN, NIGHT RN REPORTS POSSIBLE THRUSH. WILL REPORT TO MD. NO FURTHER NEEDS OR CONCERNS AT THIS TIME.
--- NOTE | 2018-09-05 07:35 | NUR ---
SHIFT SUMMARY NOTE PT REMAINS ABLE TO ANSWER ORIENTATION QUESTIONS APPROPRIATELY. PT REPORTED MOUTH PAIN AT APPROX 0630 AND STATED THAT SHE THOUGH SHE HAD A YEAST INFECTION IN HER MOUTH. ORAL CAVITY INSPECTED AND PT APPEARED TO HAVE WHITE SPLOTCHES ON TONGUE AND INNER CHEEKS. PT PROVIDED ULTRAM PO WITH LITTEL REPORTED EFFECT. PT HAS REMAINED ON 9L O2 VIA HFNC THROUGH MUCH OF THE NIGHT. PT SPENT APPROX 2 HOURS ON BIPAP PLACED BY RT. PT SPO2 IS CURRENTLY IN THE LOW 90'S. PT HR HAS REMAINED IN THE HIGH 90'S THROUGH MUCH OF THE NIGHT AND APPEARS SINUS. PT HAS BEEN OBSWERVED TO REPOSITION SELF IN BED WITHOUT ASSISTANCE. PT SANTOS REMAINS PATENT AND DRAINING TO GRAVITY. PT HAD APPROX 600ML OF URINE OUTPUT OVERNIGHT. WILL REPORT OFF TO ON COMING DAY SHIFT NURSE.
[2018-09-05 07:40] LABS: PCO2 Arterial 50.4 mmHg (35-45); PO2 Arterial 55.8 mmHg (80-100); pH Blood Arterial 7.47 (7.35-7.45)
--- NOTE | 2018-09-05 09:48 | NUR ---
DR WORTHY NOTIFIED OF PT'S ORAL THRUSH. SEE NEW ORDERS
[2018-09-05 09:51] LABS: Percent Saturation 11.9 % (15.0-50.0)
--- NOTE | 2018-09-05 17:47 | NUR ---
SHIFT SUMMARY: PT RESTING IN BED ON 9-10L O2 VIA HIGH FLOW NC. LUNG SOUNDS REMAIN DIMINISHED IN BASES AND SOB ON EXERTION. PT HAS NOT BEEN MOTIVATED TO MOVE IN BED AND HAS BEEN DENYING ATTEMPTS TO ENCOURAGE MOVEMENT. FAMILY CAME TO SEE PT AND HER SPIRITS IMPROVED AFTER SEEING THEM. PT REPOSITIONED WITH HER PILLOW BENEATH COCCYX. PT CURRENTLY WORKING ON DINNER INDEPENDENTLY. NO FURTHER NEEDS OR CONCERNS
--- NOTE | 2018-09-05 23:34 | NUR ---
ASSUMING CARE. RECEIVED PT REPORT FROM BARTOLOME LEONARDO. PT IS ALERT AND ORIENTED AT THE TIME CARE ASSUMED. PT IS RECEIVING 10L O2 VIA HFNC. PT SPO2 IS IN THE MID TO HIGH 90'S. PT HAS MIDLINE ABDOMINAL INSCISION FROM HERNIA REPAIR SURGERY. SITE IS HEALING WELL WITH NO SIGNS OF DRAINAGE OR REDNESS. PT IS RECEIVING THICKENED LIQUIDS AND APPEARS TO TOLERATE THEM WELL. PT IS SALINE LOCKED AT THIS TIME AND IS NOT RECEIVING ANY IV FLUIDS. PT REPORTED SOME HEART BURN AND REQUESTED ICE CREAM, WITH SOME REPORTED RELIEF PT HR IS IN THE 90'S AND IS SINUS. PT BP IS STABLE AT THIS TIME. ASSUMED CARE OF PT AT THE TIME OF SHIFT REPORT. WILL CONTINUE TO MONITOR PT.
--- NOTE | 2018-09-06 01:25 | NUR ---
PT TRANSFER REPORT CALLED AND GIVEN TO MEDICAL FLOOR NURSE. ALL QUESTIONS ANSWERED AT THE TIME OF REPORT. PT TRANSFERED TO MEDICAL FLOOR ROOM 364 VIA ICU BED BY LAURE PEÑALOZA. PT TRANSFERED WITH ALL PT BELONGINGS. PT TRANSFERED AT APPROC 0122.
--- NOTE | 2018-09-06 01:45 | NUR ---
0130 PT RECEIVED INTO ROOM 364 FROM ICU. PT RESTING COMFORTABLY WITH O2 AT 8L/M PER NASAL CANNULA.
--- NOTE | 2018-09-06 04:23 | NUR ---
SHIFT SUMMARY: 63 Y/O OBESE FEMALE RESTED COMFORTABLY IN ROOM ALL NIGHT. PT SLIGHTLY CONFUSED AT TIMES AND REQUIRES REDIRECTION AND ORIENTATION TO SURROUNDINGS. PT DENIES NAUSEA OR PAIN. PTS BED ALARM APPLIED, BED LOW POSITION, CALL LIGHT AT SIDE
[2018-09-06 05:21] LABS: BASOPHILS ABSOLUTE AUTO 0.01 K/mm3 (0.00-0.23); BASOPHILS PERCENT AUTO 0 % (0-2); EOSINOPHILS PERCENT AUTO 0 % (0-6); Hematocrit 26.9 % (33.0-51.0); IMMATURE GRAN ABSOLUTE AUTO 0.05 K/mm3 (0.00-0.10); IMMATURE GRAN PERCENT AUTO 1 % (0-1); LYMPHOCYTES PERCENT AUTO 3 % (21-46); MONOCYTES ABSOLUTE AUTO 0.16 K/mm3 (0.16-1.47); MONOCYTES PERCENT AUTO 2 % (4-13); Mean Corpuscular HGB 29.4 pg (26.0-34.0); Mean Corpuscular HGB Conc 29.7 g/dL (31.5-36.5); Mean Corpuscular Volume 99 fL (80-100); Mean Platelet Volume 10.9 fL (9.1-12.4); NEUTROPHILS ABSOLUTE AUTO 10.35 K/mm3 (1.96-9.15); NEUTROPHILS PERCENT AUTO 95 % (41-73); Platelet Count 331 K/mm3 (150-400); RDW Coefficient Variation 19.3 % (11.7-14.2); Red Blood Cell Count 2.72 M/mm3 (3.80-5.20); White Blood Cell Count 10.87 K/mm3 (4.00-11.30)
[2018-09-06 05:38] LABS: Alanine Aminotransfer (ALT/SGP 44 U/L (12-78); Albumin, Blood 2.2 g/dL (3.4-5.0); Albumin/Globulin Ratio 0.5 (0.8-1.8); Alk Phos 72 U/L (50-136); Anion Gap 7 mmol/L (6-16); Aspartate Aminotrans (AST/SGOT 52 U/L (12-37); Bilirubin, Total 0.3 mg/dL (0.1-1.0); Blood Urea Nitrogen 30 mg/dL (8-24); CO2, Blood 33 mmol/L (21-32); Calcium, Blood 8.8 mg/dL (8.5-10.1); Chloride, Blood 99 mmol/L (98-108); Creatinine, Blood 0.48 mg/dL (0.40-1.00); Globulin, Blood 4.2 g/dL (2.2-4.0); Glomerular Filtration Rate >60 (60-); Glucose, Blood 195 mg/dL (70-99); Potassium, Blood 4.5 mmol/L (3.5-5.5); Sodium, Blood 139 mmol/L (136-145); Total Protein, Blood 6.4 g/dL (6.4-8.2)
--- NOTE | 2018-09-06 18:43 | NUR ---
SHIFT SUMMARY: NO ACUTE CHANGES TO REPORT THIS SHIFT. PT A&O. MEDICATED FOR BACK PAIN PER EMAR. OT/PT EVAL & TREAT ORDERED; PT UNABLE TO STAND OUT-OF-BED; LIFT PATIENT. O2 TITRATED TO 8L THIS SHIFT. ASPIRATION PRECAUTIONS; PO MEDS CRUSHED IN APPLE SAUCE; PUREE DIET; THICKENED LIQUIDS/NO STRAWS. PLAN TO D/C TO SNF WHEN ASPIRATION PNA IMPROVES. WCTM.
--- NOTE | 2018-09-07 03:13 | NUR ---
PATIENT OFFERED BEDPAN WHILE MACHINE I CUTTER WAS ON BREAK ANOTHER AIDE OFFERED PT BEDPAN. PT REFUSED STATIND SHE WANTED TO USE BEDSIDE COMMODE. RN NOTIFIED AND IS DEFERRING TIL PHYSICAL THERAPY CAN FURTHER EVALUATE AND THE PT IS A LIFT AND HAS FALLEN DURING HER STAY AT THE HOSPITAL.
--- NOTE | 2018-09-07 04:27 | NUR ---
SHIFT SUMMARY: 63 Y/O FEMALE ASKED REPEATLY LAST NIGHT TO SIT BEDSIDE CHAIR WITHOUT USING LIFT DEVICE. THIS NURSE ADVISED PATIENT THAT SHE WOULD ONLY BE ABLE TO GET OUT OF BED WITH A LEFT WHICH SHE DECLINED. PT APPEARS TO HAVE DISORGANIZED THOUGHT PROCESSS AT TIMES WITH POOR RECENT MEMORY ABILITY (PT REMEMBERS THINGS FROM THE PAST). PT ALSO CONSTANTLY ASKING FOR REGULAR FOOD AND LIQUIDS WITH PATIENT REMINDED SHE IS ON A PUREED, THICKENED LIQUID DIET TO INCLUDE HAVING ALL MEDS CRUSHED IN APPLESAUCE. PT WEARING O2 AT 8L/M PER NASAL CANNULA, LUNGS SOUNDS ARE COARSE THROUGHOUT. PTS SKIN ECCYMOTIC AND BRUISED OVER ENTIRE BODY. PTS MID ADB INCISION HERNIA REPAIR WELL APPROXIMATED. PTS BED ALARM APPLIED, BED LOW POSITION, CALL LIGHT AT SIDE.
[2018-09-07 05:13] LABS: Hematocrit 23.8 % (33.0-51.0); Hemoglobin 7.1 g/dL (11.5-16.0); Mean Corpuscular HGB 28.7 pg (26.0-34.0); Mean Corpuscular HGB Conc 29.8 g/dL (31.5-36.5); Mean Platelet Volume 10.5 fL (9.1-12.4); Platelet Count 371 K/mm3 (150-400); RDW Coefficient Variation 19.2 % (11.7-14.2); Red Blood Cell Count 2.47 M/mm3 (3.80-5.20); White Blood Cell Count 4.24 K/mm3 (4.00-11.30)
[2018-09-07 05:14] LABS: Mean Corpuscular Volume 96 fL (80-100)
[2018-09-07 05:43] LABS: BAND PERCENT MAN 5 % (0-8); BASOPHILS PERCENT MAN 0 % (0-2); EOSINOPHILS PERCENT MAN 0 % (0-6); LYMPHOCYTES ABSOLUTE MAN 0.12 K/mm3 (0.84-5.20); LYMPHOCYTES PERCENT MAN 3 % (21-46); MONOCYTES ABSOLUTE MAN 0.08 K/mm3 (0.16-1.47); MONOCYTES PERCENT MAN 2 % (4-13); NEUTROPHILS ABSOLUTE MAN 4.02 K/mm3 (1.96-9.15); SEG NEUTROPHILS PERCENT MAN 90 % (41-73); TOTAL CELLS COUNTED 100
[2018-09-07 05:48] LABS: Alanine Aminotransfer (ALT/SGP 46 U/L (12-78); Albumin, Blood 2.1 g/dL (3.4-5.0); Albumin/Globulin Ratio 0.6 (0.8-1.8); Alk Phos 66 U/L (50-136); Anion Gap 2 mmol/L (6-16); Aspartate Aminotrans (AST/SGOT 43 U/L (12-37); Bilirubin, Total 0.4 mg/dL (0.1-1.0); Blood Urea Nitrogen 29 mg/dL (8-24); CO2, Blood 37 mmol/L (21-32); Calcium, Blood 8.6 mg/dL (8.5-10.1); Chloride, Blood 98 mmol/L (98-108); Creatinine, Blood 0.48 mg/dL (0.40-1.00); Globulin, Blood 3.8 g/dL (2.2-4.0); Glomerular Filtration Rate >60 (60-); Glucose, Blood 200 mg/dL (70-99); Potassium, Blood 4.5 mmol/L (3.5-5.5); Sodium, Blood 137 mmol/L (136-145); Total Protein, Blood 5.9 g/dL (6.4-8.2)
--- NOTE | 2018-09-07 15:56 | NUR ---
SHE SEEMED TO HAVE SOME PAIN RELIEF AND WAS NOT TOO SOMNULENT AFTER IV FENTANYL THIS MORNING. LATER I GAVE HER A TRAMADOL AND SHE WAS HARD TO AROUSE. I HAD TO PUT HER HIGH FLOW O2 CANNULA IN HER MOUTH TO KEEP HER SATS UP WHILE SHE SLEPT. SHE THEN ATE SOME LATE LUNCH. SHE WAS IRRITABLE WITH SOMEONE ON THE PHONE. SHE DESATS TO MID 80'S WHEN SHE TALKS OR EATS. WILL REPOSITION AGAIN NOW. HER BOTTOM HURTS. I PUT A SMALL FOAM DRESSING ON HER BUTTOCK NEAR HER ANUS STAGE 2 TINY ALATNA.
--- NOTE | 2018-09-07 18:42 | NUR ---
SHE HAS A SMALL APPETITE. SHE IS ON PUREE DIET AND KNOWS TO USE A SPOON FOR HER NECTAR THICK LIQUIDS. TRANSFUSION IN PROGRESS. NO PROBLEMS WITH IT. NO VISITORS TODAY BUT SHE HAS TALKED ON THE PHONE 3 OR 4 TIMES.SHE HAS BEEN TURNED. NO BM. TOM PATENT.
--- NOTE | 2018-09-07 23:25 | NUR ---
PT REPOSITIONED LEFT SIDE WITH 3 PILLOWS X 2 ASSIST. PT HAS TENDENCY TO FREQUENTLY REMOVE NASAL CANNULA MULTIPLE TIMES AND QUICKLY DESATS TO 75% WITHOUT OXYGEN. PTS SAT ARE 92% WHEN WORN.
--- NOTE | 2018-09-08 04:17 | NUR ---
SHIFT SUMMARY: 64 Y/O PALE FEMALE RESTED COMFORTABLY ALL EVENING AFTER GETTING TURNED BY STAFF EVERY 2 HOURS. PTS HAD ONE TRANSFUSION LAST NIGHT AFTER HEMOGLOBIN YESTERDAY WAS 7.1. PT IS ALERT AND ORIENTED X 1 AND ABLE TO FOLLOW SIMPLE VERBAL COMMANDS. PTS SKIN PALE AND INTACT. PTS COCCYX HAS MEPLEX DRESSING THAT DRY AND INTACT. PTS SANTOS DRAINING CLEAR YELLOW FLUID. PTS CONTINUES TO BE ON NECTAR THICKENED/PUREED DIET WITH ALL MEDS CRUSHED AND GIVEN IN APPLESAUCE WITH GOOD TONGUE MOVEMENT NOTED AND WEAK COUGH NOTED UPON REQUEST FROM THIS NURSE. PTS BED ALARM APPLIED, BED LOW POSITION, CALL LIGHT AT SIDE.
[2018-09-08 05:21] LABS: BASOPHILS ABSOLUTE AUTO 0.01 K/mm3 (0.00-0.23); BASOPHILS PERCENT AUTO 0 % (0-2); Hematocrit 26.8 % (33.0-51.0); Hemoglobin 8.2 g/dL (11.5-16.0); LYMPHOCYTES ABSOLUTE AUTO 0.71 K/mm3 (0.84-5.20); LYMPHOCYTES PERCENT AUTO 13 % (21-46); MONOCYTES ABSOLUTE AUTO 0.32 K/mm3 (0.16-1.47); MONOCYTES PERCENT AUTO 6 % (4-13); Mean Corpuscular HGB 28.9 pg (26.0-34.0); Mean Corpuscular HGB Conc 30.6 g/dL (31.5-36.5); Mean Corpuscular Volume 94 fL (80-100); Mean Platelet Volume 9.8 fL (9.1-12.4); Platelet Count 450 K/mm3 (150-400); RDW Coefficient Variation 19.5 % (11.7-14.2); RDW Standard Deviation 67.1 fL (35.1-46.3); Red Blood Cell Count 2.84 M/mm3 (3.80-5.20); White Blood Cell Count 5.56 K/mm3 (4.00-11.30)
[2018-09-08 05:22] LABS: EOSINOPHILS ABSOLUTE AUTO 0.02 K/mm3 (0.00-0.68); EOSINOPHILS PERCENT AUTO 0 % (0-6); IMMATURE GRAN ABSOLUTE AUTO 0.05 K/mm3 (0.00-0.10); IMMATURE GRAN PERCENT AUTO 1 % (0-1); NEUTROPHILS ABSOLUTE AUTO 4.45 K/mm3 (1.96-9.15); NEUTROPHILS PERCENT AUTO 80 % (41-73)
[2018-09-08 05:43] LABS: Anion Gap 3 mmol/L (6-16); Blood Urea Nitrogen 33 mg/dL (8-24); Bun/Creatinine Ratio 60.2 (12.0-20.0); CO2, Blood 35 mmol/L (21-32); Calcium, Blood 8.6 mg/dL (8.5-10.1); Chloride, Blood 98 mmol/L (98-108); Creatinine, Blood 0.55 mg/dL (0.40-1.00); Glomerular Filtration Rate >60 (60-); Glucose, Blood 135 mg/dL (70-99); Potassium, Blood 4.3 mmol/L (3.5-5.5); Sodium, Blood 136 mmol/L (136-145)
--- NOTE | 2018-09-08 18:50 | NUR ---
PT ALERT AND ORIENTED. PT STATED SHE WAS HAVING A GLOOMY DAY THAT DAY. SHE TOOK ALL OF HER MEDICATIONS WITHOUT COMPAINT AND WAS COOPERATIVE WITH CARE. FENTANYL WAS GIVEN 25 MCG FOR PAIN X2 TODAY. PT HAS NOT BEEN EATING MUCH OF HER MEALS. PT SLEPT OFF AND ON TODAY. PT ASKED TO HAVE BED REPOSITIONED TOWARDS THE WINDOW, WHICH WAS DONE FOR HER. SHE ATTEMPTED TO HAVE BM BUT DID NOT PASS ANYTHING. PT WORKED WITH THE PT TODAY BUT IT WAS DETERMINED SHE WAS TOO WEAK TO STAND. PT IS ON BEDREST WITH Q2 REPOSITIONING. REQUIRES NECTAR THICK FLUIDS AND IS ON A PUREE DIET. SHE CANNOT USE A STRAW. PT WAS REPOSITIONED AT 6PM AND HAS CALL LIGHT WITHIN REACH.
--- NOTE | 2018-09-09 02:51 | NUR ---
PT C/O NEEDING PASS GAS, DOCOLAX SUPPOSITORY GIVEN.
--- NOTE | 2018-09-09 04:09 | NUR ---
SHIFT SUMMARY: 63 Y/O FEMALE HAD RESTLESS NIGHT AT TIMES AFTER C/O NEEDING HAVE BM, PT WAS GIVEN DUCOLAX SUPPOSITORY WITHOUT NO RESULTS. PT TURNED EVERY TWO HOURS BY STAFF. PTS SKIN ECCYMOTIC AND BRUISED ON UPPER ARM. PTS LEFT UPPER ARM PICC LINE INTACT. PT WEARING O2 AT 6L/M PER NASAL CANNULA AND TENDS TO DESAT FREQUENTLY PATIENT REMOVES O2 FROM HER NARES WITH STAFF ASSISTING WITH REPLACING BACK IN PLACE. PT HAS EXTREMELY POOR SHORT TERM MEMORY AND REQUIRES FREQUENT REDIRECTION BY STAFF WITH ALL ADLS. PTS SANTOS DRAINING CLEAR YELLOW FLUID. PT CONTINUES TO TAKE ALL MEDS CRUSHED VIA APPLESAUCE FROM THIS NURSE AND WAS FED BY STAFF WITH H.S. SNACKS. PT C/O GENERALIZED PAIN AND WAS GIVEN FENTANYL 25MG IVP X 2 WITH RELIEF FELT. PT DENIES NAUSEA. PTS BED ALARM APPLIED, BED LOW POSITION, CALL LIGHT AT SIDE.
--- NOTE | 2018-09-09 05:29 | NUR ---
0500 PT STILL C/O NO BM, PATIENT GIVEN WARMED UP THICKENED PRUNE JUICE 70% AND APPLE JUICE 30% MIXED WITH 2 TALBESPOONS MELTED BUTTER AND 10ML MILK OF MAGNESIA. THIS NURSE FED PATIENT VIA SPOON ENTIRE CONTENTS--240CC.
--- NOTE | 2018-09-09 16:55 | NUR ---
OXYGEN SATURATION/BIPAP PT'S OXYGEN SATURATION 85-90% ON 15L. THIS RN HAD CALLED [facility] TO ASSIST WITH INCREASING OXYGEN SATURATION. PT'S OXYGEN SATURATION WAS IN LOW 80'S ON THE 6L AND PT HAD TO BE INCREASED TO 15L TO KEEP AT 85-90%. RT PLACED BIPAP BUT PT RIPPED IT OFF AFTER ONLY WEARING FOR ABOUT 10 MINUTES AND WOULD NOT ALLOW STAFF TO PLACE BIPAP BACK ON. THIS RN CALLED DR. WORTHY AND NOTIFIED HER OF PT'S OXYGEN SATURATION. ORDERS WERE GIEN TO ADMINISTER ATIVAN AND PLACE RESTRAINTS IF NEEDED.
--- NOTE | 2018-09-09 17:50 | NUR ---
TRANSFER PT RECEIVED ATIVAN TO HELP CALM HER DOWN FOR BIPAP BUT PT CONTINUES TO DECLINE TO WEAR CPAP. PT TRANSFERRED TO ICU 11 DUE TO PT WEARING BIPAP AND NEEDING TO BE IN RESTRAINTS. REPORT GIVEN TO BARTOLOME HARDY. PT TRANSFERRED TO ICU 11 VIA BED AND FOUR PERSON TRANSFER TO ICU BED. BROTHERTAIWO WILL BE NOTIFIED OF PT'S TRANSFER.
--- NOTE | 2018-09-09 18:12 | NUR ---
UPDATED PT'S BROTHER TAIWO. NOTIFIED HIM OF PT'S TRANSFER TO ICU-11.
--- NOTE | 2018-09-09 18:12 | NUR ---
TRANSFER NOTE PT ARRIVED TO ICU 11 VIA BED FROM MEDICAL FLOOR AT 1802. PT MOVED OVER TO ICU BED AND REPOSITIONED TO [facility] FOR COMFORT. BLE ELEVATED ON PILLOWS. PT ON OXYMIZER AT 15LPM UPON ARRIVAL AND CONTINUED. PT REFUSING BIPAP, STATES "WAIT UNTIL MY BROTHER AND TITUS GET HERE, THEY'RE MY GUARDIANS". EXPLAINED TO PT THAT SHE IS A FULL CODE AND IF SHE WISHES TO BE LIMITED CODE OR REFUSE BIPAP THIS MUST BE EXPLICITLY STATED. SPO2 READING 91-93% ON 15LPM VIA OXYMIZER. BIPAP ON STANDBY. PT OPENING EYES SPONTANEOUSLY, ORIENTED TO SELF, PERSON, PLACE, SURROUNDINGS, AND DATE. PT FOLLOWS COMMANDS. PT SOB WITH TALKING AND MINIMAL EXERTION. LS CLEAR T/O. RHYTHM SHOWING SINUS TACH WITH HR IN 100S. PT DENIES CHEST PAIN/PRESSURE. BP STABLE. AFEBRILE, 97.7. ABD MODERATELY DISTENDED, SOFT, TENDER TO PALPATION. SURGICAL SCAR BELOW UMBILICUS, SCABBING OVER, NO REDNESS OR OOZING NOTED. BT X4, NORMOACTIVE. PT DENIES NAUSEA. PT LAWSON. PT CRIES OUT IN PAIN WITH ANY MOVEMENT OR REPOSITIONING. PT OBESE. PICC TO ROBERTO, SALINE LOCKED. BED IN LOWEST POSITION, SIDE RAILS RAISED. BED ALARM ON. CALL LIGHT IN REACH. WILL CONT TO MONITOR PT.
--- NOTE | 2018-09-09 18:24 | NUR ---
BIPAP PT SPO2 DROPPED TO 89% AND MAINTAINED. INFORMED PT OF NEED TO HAVE BIPAP ON. PT CONTINUES TO REFUSE. EDUCATED PT ON IMPORTANCE OF BREATHING AND NEED FOR BIPAP. BIPAP PLACED ON PT. BIPAP SETTINGS: 03/21, FIO2 80%. SPO2 95%. CALL TO RT FOR ADJUSTMENT OF BIPAP SETTINGS.
--- NOTE | 2018-09-09 20:45 | NUR ---
PATIENT RESTLESS AND ANXIOUS PULLING OFF BIPAP YELLING "I CAN'T WEAR THIS" PATIENT PLACED ON 16L/NC HUMIDIFIED. PATIENT REMINDED THAT THE BIPAP IS A DEVICE TO HELP HER BREATH, AND THE RISK OF NEEDING TO BE REINTUBATED IF WE CAN'T GET HER BREATHING AND OXYGEN UNDER CONTROL. PATIENT C/O BACK PAIN AND PAIN WITH DEEP BREATH. ULTRAM PO GIVEN WITH THICKENED WATER AND APPLE SAUCE, PATIENT TOSHIA PO WELL. PATIENT APPEARS TO BE RELAXED AND SLEEPING RESP EVEN AND UNLABORED BIOX 89-93% ON 16L/NC. PATIENT VERBALIZED THAT SHE DIDN'T WANT HER FAMILY CALLED AT THIS TIME.
[2018-09-10 04:26] LABS: BASOPHILS ABSOLUTE AUTO 0.02 K/mm3 (0.00-0.23); BASOPHILS PERCENT AUTO 0 % (0-2); Hematocrit 25.1 % (33.0-51.0); Hemoglobin 7.4 g/dL (11.5-16.0); LYMPHOCYTES ABSOLUTE AUTO 0.47 K/mm3 (0.84-5.20); LYMPHOCYTES PERCENT AUTO 10 % (21-46); MONOCYTES ABSOLUTE AUTO 0.67 K/mm3 (0.16-1.47); MONOCYTES PERCENT AUTO 14 % (4-13); Mean Corpuscular HGB 28.2 pg (26.0-34.0); Mean Corpuscular HGB Conc 29.5 g/dL (31.5-36.5); Mean Corpuscular Volume 96 fL (80-100); Mean Platelet Volume 9.8 fL (9.1-12.4); Platelet Count 441 K/mm3 (150-400); RDW Coefficient Variation 18.7 % (11.7-14.2); RDW Standard Deviation 65.3 fL (35.1-46.3); Red Blood Cell Count 2.62 M/mm3 (3.80-5.20); White Blood Cell Count 4.79 K/mm3 (4.00-11.30)
[2018-09-10 04:29] LABS: EOSINOPHILS ABSOLUTE AUTO 0.09 K/mm3 (0.00-0.68); EOSINOPHILS PERCENT AUTO 2 % (0-6); IMMATURE GRAN ABSOLUTE AUTO 0.05 K/mm3 (0.00-0.10); IMMATURE GRAN PERCENT AUTO 1 % (0-1); NEUTROPHILS ABSOLUTE AUTO 3.49 K/mm3 (1.96-9.15); NEUTROPHILS PERCENT AUTO 73 % (41-73)
[2018-09-10 04:43] LABS: Alanine Aminotransfer (ALT/SGP 50 U/L (12-78); Albumin, Blood 1.8 g/dL (3.4-5.0); Albumin/Globulin Ratio 0.5 (0.8-1.8); Alk Phos 68 U/L (50-136); Anion Gap 4 mmol/L (6-16); Aspartate Aminotrans (AST/SGOT 53 U/L (12-37); Bilirubin, Total 0.4 mg/dL (0.1-1.0); Blood Urea Nitrogen 20 mg/dL (8-24); Bun/Creatinine Ratio 39.4 (12.0-20.0); CO2, Blood 36 mmol/L (21-32); Calcium, Blood 8.5 mg/dL (8.5-10.1); Chloride, Blood 101 mmol/L (98-108); Creatinine, Blood 0.51 mg/dL (0.40-1.00); Globulin, Blood 3.7 g/dL (2.2-4.0); Glomerular Filtration Rate >60 (60-); Glucose, Blood 111 mg/dL (70-99); Potassium, Blood 4.3 mmol/L (3.5-5.5); Sodium, Blood 141 mmol/L (136-145); Total Protein, Blood 5.5 g/dL (6.4-8.2)
--- NOTE | 2018-09-10 06:22 | NUR ---
SUMMARY PATIENT SLEEPING OFF AND ON WITH OXYGEN IN MOUTH WHILE SLEEPING. ABLE TO TITRATE OXYGEN DOWN TO 7L/NC. PATIENT REFUSING BIPAP T/O NIGHT. PATIENT AWAKE TO VERBAL STIMULI, TOSHIA PO MEDS WITH THICK LIQUID AND SPOON. PATIENT VERBALIZED PAIN "EVERYWHERE" THIS AM. MEDICATED TWICE WITH ULTRAM DURING THE NIGHT. GENERALIZED WEAKNESS CONTINUES, ASSISTING WITH REPOSITIONING. PATIENT YELLS OUT WITH SLIGHT MOVEMENT. BIOX DROPPING TO 70'S WHEN PATIENT REMOVES OXYGEN. PATIENT VERBALIZED UNDERSTANDING OF NEED FOR THE OXYGEN YET WHEN AWAKE CONTINUES TO REMOVE THE OXYGEN.
--- NOTE | 2018-09-10 07:51 | NUR ---
ASSUMED CARE AT 0715 REPORT FROM ENRRQIUE Christianson RN. PATIENT SLEEPING. OXYMIZER NC IN NOSE, BREATHING THROUGH HER MOUTH. BIOX 97%
--- NOTE | 2018-09-10 08:46 | NUR ---
MD VISIT DR. WORTHY IN. PATIENT CONTINUES TO BE DROWSY. ABG ORDERED.
--- NOTE | 2018-09-10 08:46 | NUR ---
SPEECH THERAPY IN. PATIENT IS DIFFICULT TO WAKE UP. ORAL CARE DONE. STILL VERY DROWSY.
[2018-09-10 09:01] LABS: PCO2 Arterial 55.9 mmHg (35-45); PO2 Arterial 75.6 mmHg (80-100); pH Blood Arterial 7.42 (7.35-7.45)
--- NOTE | 2018-09-10 14:49 | NUR ---
ASSIST OT TO DANGLE PATIENT. REFUSED TO GET INTO CHAIR WITH LIFT. BACK WASHED AND CREAM RUBBED IN. WANTED TO GO BACK TO BED.
--- NOTE | 2018-09-10 16:12 | NUR ---
HUMIDIFICATION ADDED TO HIGH FLOW NC BY RT. PLACED IN HER MOUTH WHILE SHE IS SLEEPING WITH HER MOUTH OPEN.
--- NOTE | 2018-09-10 18:23 | NUR ---
PATIENT IS SLEEPING. SLEPT THROUGH CBG. NC IN MOUTH WHILE ASLEEP. WILL REPORT TO ONCOMING SHIFT.
--- NOTE | 2018-09-10 21:39 | NUR ---
PATIENT AWAKE EATING SMALL AMT OF DINNER, DOING WELL WITH FEEDING SELF USING SPOON FOR ALL LIQUIDS. OXYGEN INCREASED TO 10L/NC WHILE PATIENT EATING DUE TO WHEN PATIENT TALKING OR MOVING IN BED BIOX DROPPING TO 87% NOW THAT PATIENT RESTING AND RELAXED OXYGEN BACK TO 7L/NC. LUNG SOUND REMAIN CLEAR. PATIENT C/O PAIN WITH REPOSITIONING, AND C/O BACK PAIN AND ABD CRAMPING. ULTRAM GIVEN FOR PAIN. PATIENT DENIES NEED FOR BEDPAN AT THIS TIME, ATTENDS PLACE DUE TO SANTOS BEING REMOVED EARLIER TODAY.
--- NOTE | 2018-09-11 06:17 | NUR ---
SUMMARY PATIENT SLEEPING OFF AND ON T/O NIGHT. AWAKENS TO SLIGHT STIMULI FALLING BACK TO SLEEP EASILY. WHILE SLEEPING OXYGEN TITRATED DOWN TO 6L/NC, WHEN AWAKE AND TALKING OR EATING OXYGEN TITRATING UP TO 10L/NC. PATIENT NOT WANTING TO STAY ON HER SIDE DURING THE NIGHT, COMPLAINING OF PAIN WITH REPOSITIONING. ABD INCISION HEALING, WITH SCAB PRESENT WITH NO SWELLING OR REDNESS SEEN. PATIENT TO PO WELL TAKING LIQUIDS WITH SPOON.
--- NOTE | 2018-09-11 07:00 | NUR ---
PATIENT OPENS EYES TO VERBAL STIMULI SMILES AND SHACKING HEAD NO TO PO MEDS AND WHEN ASKED IF SHE FEELS IF SHE NEEDS TO URINATE. ATTENDS REMAIN IN PLACE AND DRY. PRILOSEC PO HELD AND PLAN TO SCAN BLADDER DUE TO NO URINE OUT SENSE SANTOS REMOVED
--- NOTE | 2018-09-11 07:20 | NUR ---
START OF SHIFT NOTE: RECEIVED REPORT FROM ENRRIQUE LAU RN, ASSUMED CARE, PATIENT HAS NOT URINATED SINCE 1300 HOURS ON 09/10/18 WHEN SANTOS WAS REMOVED, BLADDER SCAN SHOWED GREATER THAN 400 IN BLADDER, NEW SANTOS CATHETER WAS INSERTED D/T RETENTION, UA SENT, PATIENT TOLERATED WELL, PATIENT IS IN SR/ST, ABDOMINAL INCISION AROUND UMBILICUS HEALED, APPROXIMATED, SITE C/D/I, ASNTOS CATHETER IN PLACE, DRAINING SHERICE COLORED URINE THAT APPEARS CLEAR, DENIES PAIN, AFEBRILE, CALL LIGHT IN REACH, WILL CONTINUE TO MONITOR.
[2018-09-11 07:42] LABS: Source, Urine Catheter
[2018-09-11 07:59] LABS: Appearance, Urine Clear (Clear); Bilirubin, Urine Neg (Neg); Blood, Urine Neg (Neg); Color, Urine Amber (P-Yellow); Glucose Qualitative, Urine Neg (Neg); Ketones, Urine Neg (Neg); Leukocyte Esterase, Urine 1+ (Neg); Nitrite, Urine Neg (Neg); Protein, Urine 2+ (Neg); Specific Gravity, Urine 1.025 (1.003-1.022); Urobilinogen, Urine 1+ (Normal)
[2018-09-11 08:17] LABS: Red Blood Cells, Urine 0-2 /hpf (0-2); Squamous Epithelial Cells Rare /hpf (Few); White Blood Cells, Urine 0-2 /hpf (0-5)
[2018-09-11 08:18] LABS: Bacteria Few /hpf; Mucus Light (0-Heavy)
--- NOTE | 2018-09-11 08:26 | NUR ---
DR. WORTHY IN TO SEE PATIENT, UPDATED ON SANTOS INSERTION AND PATIENT CONDITION, PATIENT CONTINUE TO BE ON 6L NC AND NEEDS INCREASE TO 10L NC WHEN WORKING WITH PT, EATING BREAKFAST AT THIS TIME, CALL LIGHT IN REACH, WILL CONTINUE TO MONITOR.
--- NOTE | 2018-09-11 09:57 | NUR ---
PATIENT TOOK AM PILLS WELL WITHOUT ANY PROBLEMS SWALLOWING, PATIENT IS ABLE TO DRINK WITHOUT USING SPOON, ATE BREAKFAST WITHOUT ANY ASSISTANCE, O2 SATURATION CONTINUED IN UPPER 90'S, SPEECH IN TO SEE PATIENT NOTIFIED ABOUT PATIENT ABLE TO DRINK, SPEECH WANTS PATIENT TO USE SPOON FOR LIQUIDS, WILL CONTINUE TO FOLLOW SPEECH'S ORDERS, PT IN TO SEE PATIENT, PATIENT NOT COOPERATIVE THIS AM, PT TO SEE PATIENT AGAIN TOMORROW, PATIENT RECEIVED AM CARE AND A BEDBATH, CALL LIGHT IN REACH, WILL CONTINUE TO MONITOR.
--- NOTE | 2018-09-11 10:10 | NUR ---
PATIENT C/O 6/10 PAIN IN RIGHT LOWER QUADRANT OF ABDOMEN, RECEIVED TRAMADOL, 50 MG PO, WILL CONTINUE TO MONITOR.
--- NOTE | 2018-09-11 12:54 | NUR ---
PATIENT RESTING COMFORTABLY WITH EYES CLOSED, CALL LIGHT IN REACH, WILL CONTINUE TO MONITOR.
--- NOTE | 2018-09-11 13:38 | NUR ---
PATIENT WAS TAKEN TO CT AT 1320 HOURS WITH BED AND OXYGEN, AND ON MONITOR, CHEST CE PE DONE, PATIENT COOPERATIVE AND DID WELL, RETURNED TO ROOM AT 1337, PLACED ON MONITOR, POSITIONED FOR COMFORT, CALL LIGHT IN REACH, WILL CONTINUE TO MONITOR.
--- NOTE | 2018-09-11 17:52 | NUR ---
SHIFT SUMMARY NOTE: NO INCIDENTS DURING THIS SHIFT, PATIENT REMAINED ALERT AND ORIENTED, DID NOT REQUIRE BIPAP DURING DAY SHIFT, ON 6L NC HIFLO HUMIDIFIED, PATIENT WAS TAKEN TO CT R/O PE, CT SCAN WAS NEGATIVE, PATIENT TOLERATED WELL, MOSTLY C/O BACK PAIN, ENCOURAGED TO SIT IN CHAIR AND WORK WITH PT BUT NOT MOTIVATED AT THIS TIME, PATIENT IS EATING AND DRINKING INDEPENDENTLY WITH SUPERVISION, ENCOURAGED TO USE SPOON FOR LIQUIDS AND TAKE IN SMALL AMOUNTS, ALSO ENCOURAGED TO TUCK CHIN WHEN SWALLOWING, PATIENT HAD NO PROBLEMS SWALLOWING AM MEDICATIONS OR FOOD AND DRINK, SANTOS CATHETER WAS REINSERTED THIS AM D/T PATIENT HAVING URINARY RETENTION AND HAD NOT VOIDED FOR 18 HOURS, ALSO HAD NO URGE TO VOID, URINE SAMPLE WAS SENT AND CULTURE WAS INDICATED, AWAITING RESULT, PATIENT HAD GOOD URINE OUTPUT VIA CATHETER URINE COLOR REMAINS SHERICE, FOR DETAILS SEE SHIFT ASSESSMENT DOCUMENTATION AND NURSES NOTES, CALL LIGHT IN REACH, WILL CONTINUE TO MONITOR AND GIVE REPORT TO ONCOMING THERAPEUTIC RIDING INSTRUCTOR.
--- NOTE | 2018-09-11 19:30 | NUR ---
ASSUMED CARE REPORT RECIEVED. PT IS LAYING IN BED AWAKE, ALERT, AND ORIENTED. PT IS FORGETFUL AT TIMES. PT IS ABLE TO FOLLOW COMMANDS, WITH ENCOURAGEMENT. PT MOANS OUT AND COMPLAINS OF PAIN TO ABD AND BACK. PT RECENTLY MED WITH TRAMADOL PER EMAR. PT BOOSTED UP IN BED AND REPOSITIONED AT THIS TIME. VITAL SIGNS STABLE WITH PT ON 4L O2 NC. PICC TO ROBERTO C/D/I, SALINE LOCKED. SANTOS IN PLACE WITH DARK YELLOW OUTPUT NOTED. WILL CONTINUE TO MONITOR.
[2018-09-12 03:53] LABS: Hematocrit 24.8 % (33.0-51.0); Hemoglobin 7.2 g/dL (11.5-16.0); Mean Corpuscular HGB 28.5 pg (26.0-34.0); Mean Corpuscular Volume 98 fL (80-100); Mean Platelet Volume 9.8 fL (9.1-12.4); Platelet Count 420 K/mm3 (150-400); RDW Coefficient Variation 18.5 % (11.7-14.2); Red Blood Cell Count 2.53 M/mm3 (3.80-5.20); White Blood Cell Count 5.67 K/mm3 (4.00-11.30)
[2018-09-12 04:09] LABS: Alanine Aminotransfer (ALT/SGP 72 U/L (12-78); Albumin, Blood 1.7 g/dL (3.4-5.0); Albumin/Globulin Ratio 0.4 (0.8-1.8); Alk Phos 79 U/L (50-136); Anion Gap 5 mmol/L (6-16); Aspartate Aminotrans (AST/SGOT 69 U/L (12-37); Bilirubin, Total 0.2 mg/dL (0.1-1.0); Blood Urea Nitrogen 17 mg/dL (8-24); Bun/Creatinine Ratio 39.2 (12.0-20.0); CO2, Blood 35 mmol/L (21-32); Calcium, Blood 8.5 mg/dL (8.5-10.1); Chloride, Blood 100 mmol/L (98-108); Creatinine, Blood 0.43 mg/dL (0.40-1.00); Globulin, Blood 3.8 g/dL (2.2-4.0); Glomerular Filtration Rate >60 (60-); Glucose, Blood 99 mg/dL (70-99); Potassium, Blood 4.6 mmol/L (3.5-5.5); Sodium, Blood 140 mmol/L (136-145); Total Protein, Blood 5.5 g/dL (6.4-8.2)
[2018-09-12 05:34] LABS: BAND PERCENT MAN 8 % (0-8); BASOPHILS ABSOLUTE MAN 0.05 K/mm3 (0.00-0.23); BASOPHILS PERCENT MAN 1 % (0-2); EOSINOPHILS ABSOLUTE MAN 0.17 K/mm3 (0.00-0.68); EOSINOPHILS PERCENT MAN 3 % (0-6); LYMPHOCYTES ABSOLUTE MAN 0.79 K/mm3 (0.84-5.20); LYMPHOCYTES PERCENT MAN 14 % (21-46); MONOCYTES ABSOLUTE MAN 0.45 K/mm3 (0.16-1.47); MONOCYTES PERCENT MAN 8 % (4-13); NEUTROPHILS ABSOLUTE MAN 4.19 K/mm3 (1.96-9.15); SEG NEUTROPHILS PERCENT MAN 66 % (41-73); TOTAL CELLS COUNTED 100
--- NOTE | 2018-09-12 05:59 | NUR ---
SHIFT SUMMARY NO ACUTE CHANGES. PT DID WELL THIS SHIFT. O2 REQUIREMENTS DOWN TO 3L NC FOR MOST OF THE SHIFT. PT NOW AT 4L NC WHILE AWAKE AND TALKING. PT HAS CONTINUED TO COMPLAIN OF PAIN THROUGHOUT THE SHIFT. PT MED PER EMAR PRN. WHEN AWAKE PT IS ALERT, ORIENTED, AND FOLLOWING COMMANDS APPROPRIATELY, BUT IS FORGETFUL AT TIMES. PT MOANS OUT AND MUMBLES WORDS WHEN TALKING. VITAL SIGNS STABLE. PICC TO ROBERTO C/D/I, SALINE LOCKED. SANTOS IN PLACE WITH DECREASED SHERICE COLORED OUTPUT. WILL CONTINUE TO MONITOR AND REPORT OFF TO ONCOMING RN.
--- NOTE | 2018-09-12 09:24 | NUR ---
The pt was very irritable, grouchy, and full of contradictory statements. Was assisted with ceiling lift to chair, much to her complaints, but she actually then complained afterwards that no one was letting her get out of bed to a wheelchair and go outside. Abdomen is tender to gentle palpation. Bowel tones active and she states that she is passing some gas. She is wearing oxygen at 3 l/min and spo2 maintaining around 92-93% with ongoing conversation.
--- NOTE | 2018-09-12 12:10 | NUR ---
Ute is refusing to sit upright at 90 degrees and refusing to get up to the chair for her lunch. Due to the risk of aspiration, I expained these two options as safe for her eating. She refuses to do either, the reasons are that "I'm cold and I have osteoarthritis and fibromyalgia" . She does not respond to the encouragement that some minimal activity will help the underlying conditions to reduce soreness, and she does not accept theoffer of warm blankets for comfort. Closes her eyes and says, Well then I just won't eat.
--- NOTE | 2018-09-12 13:22 | NUR ---
Returned from lunch to find that the recharger had been in care of the pt as the pt had pulled her oxygen off completely, and caused hypoxia of less than 50 % SPO2. Hiflo nasal cannula delivery was increased to 7 l/min briefly for recovery. The pt is now at 4 l/min, spo2 is 92% and she appears relaxed, comfortable and respirations are even, unlabored in a hernandez's position, at about 16/min. the pt stated that she removed her own oxygen because she was hot. Fans were placed on either side of her to reduce her discomfort at being too hot.
--- NOTE | 2018-09-12 15:47 | NUR ---
Ute is emotionally labile today, vacillating between irritability, sadness and feeling like she is "not doing very well". At times she is shouting, angry, and frustrated at what staff attempt to do with her (therapy, pulmonary toilet, repositioning), and other times she expresses irritation that staff are not helping her enough. It is unclear as to whether her lack of participation in activity is due to low motivation, or if cognitively she lacks the insight to understand how the activities would benefit her. She was medicated for lower back discomfort this afternoon, and then staff repostioned her on her side, and she yelled out loudly that it was painful; however, when the risks of immobility were again reviewed with her, she responded with irritation that <"Yes, I know all of that." Then a few minutes later she was tearful because she said, "People are telling me that I'm not doing very well." Encouraged her with the activity she did have today, and suggested that getting out of bed for breakfast this morning was a good step in the right direction.
--- NOTE | 2018-09-12 16:59 | NUR ---
Three of Ute's friends are here, encouraging her to get OOB for meals, and stating that the cause of her discomfort is most likely a long period of bedrest and inactivity. They are encouraging her to deep breathe, cough, and to advance her activity level. Ute seems agreeable to this. Lidocaine patch was applied approx 15 minutes before anticipated dinner hour.
--- NOTE | 2018-09-12 21:28 | NUR ---
ASSUMED CARE OF PT. REPORT RCV'D FROM BARTOLOME EDWARDS. PT ALERT AND ORIENTED SITTING UP IN BED ASKING FOR HER NIGHT TIME MEDICATION. PT STATES SHE HAS 8/10 PAIN IN HER SIDE. WHEN ASKED IF THIS WAS A NEW PAIN PT RESPONDED "I DON'T KNOW, THEY HAVEN'T CHECKED MY KIDNEYS IN AWHILE". PT COOPERATIVE WITH ASSESSMENT AND ABLE TO SWALLOW MEDICATIONS WITHOUT DIFFICULTY WITH APPLESAUCE. PT ON 4L O2 NC WITH SATS IN THE 90'S. SANTOS PATENT AND DRAINING SHERICE URINE. CALL LIGHT WITHIN REACH, BED IN LOW LOCKED POSITION. SEE FULL SHIFT ASSESSMENT.
[2018-09-13 03:47] LABS: Hematocrit 25.1 % (33.0-51.0); Hemoglobin 7.7 g/dL (11.5-16.0); Mean Corpuscular HGB 29.4 pg (26.0-34.0); Mean Corpuscular HGB Conc 30.7 g/dL (31.5-36.5); Mean Corpuscular Volume 96 fL (80-100); Mean Platelet Volume 9.2 fL (9.1-12.4); Platelet Count 381 K/mm3 (150-400); RDW Coefficient Variation 17.8 % (11.7-14.2); RDW Standard Deviation 62.2 fL (35.1-46.3); Red Blood Cell Count 2.62 M/mm3 (3.80-5.20); White Blood Cell Count 4.25 K/mm3 (4.00-11.30)
[2018-09-13 04:12] LABS: Alanine Aminotransfer (ALT/SGP 76 U/L (12-78); Albumin, Blood 1.6 g/dL (3.4-5.0); Albumin/Globulin Ratio 0.4 (0.8-1.8); Alk Phos 85 U/L (50-136); Anion Gap 3 mmol/L (6-16); Aspartate Aminotrans (AST/SGOT 67 U/L (12-37); Bilirubin, Total 0.4 mg/dL (0.1-1.0); Blood Urea Nitrogen 14 mg/dL (8-24); Bun/Creatinine Ratio 36.8 (12.0-20.0); CO2, Blood 35 mmol/L (21-32); Calcium, Blood 8.5 mg/dL (8.5-10.1); Chloride, Blood 98 mmol/L (98-108); Creatinine, Blood 0.38 mg/dL (0.40-1.00); Globulin, Blood 3.9 g/dL (2.2-4.0); Glomerular Filtration Rate >60 (60-); Glucose, Blood 96 mg/dL (70-99); Potassium, Blood 4.4 mmol/L (3.5-5.5); Sodium, Blood 136 mmol/L (136-145); Total Protein, Blood 5.5 g/dL (6.4-8.2)
[2018-09-13 04:37] LABS: BAND PERCENT MAN 21 % (0-8); BASOPHILS PERCENT MAN 0 % (0-2); EOSINOPHILS ABSOLUTE MAN 0.08 K/mm3 (0.00-0.68); EOSINOPHILS PERCENT MAN 2 % (0-6); LYMPHOCYTES ABSOLUTE MAN 0.42 K/mm3 (0.84-5.20); LYMPHOCYTES PERCENT MAN 10 % (21-46); MONOCYTES ABSOLUTE MAN 0.12 K/mm3 (0.16-1.47); MONOCYTES PERCENT MAN 3 % (4-13); NEUTROPHILS ABSOLUTE MAN 3.61 K/mm3 (1.96-9.15); SEG NEUTROPHILS PERCENT MAN 64 % (41-73); TOTAL CELLS COUNTED 100
--- NOTE | 2018-09-13 06:27 | NUR ---
SHIFT SUMMARY NO ACUTE CHANGES OVERNIGHT. PT WAS ALERT, ORIENTED, AND COOPERATIVE WITH CARE. PT'S VSS THROUGHOUT SHIFT AND 400 ML URINARY OUTPUT. PT CONTINUES TO COMPLAIN OF PAIN OF VARYING DEGREE AND LOCATION, PER PT LIDOCAINE PATCH "DID NO GOOD". PT STATES THAT [facility]K [facility] AND SHE FEELS LIKE SHE WOULD BE MORE MOTIVATED TO IMPROVE WITH HIS HELP. SEE PREVIOUS SHIFT ASSESSMENT. WILL REPORT TO DAYSHIFT NURSE.
[2018-09-13] MEDS ORDERED: ACET325 PO (09:58)
[2018-09-13] MEDS ORDERED: INSULANPEN SC (09:59)
[2018-09-13] MEDS ORDERED: HUMALOG KW200 UNIT/1 SC (10:00)
[2018-09-13] MEDS ORDERED: LIDO700A20 TOP (10:02)
[2018-09-13] MEDS ORDERED: PANT40 PO (10:04)
[2018-09-13] MEDS ORDERED: GAVILAX17 GM PO (10:04)
[2018-09-13] MEDS ORDERED: SENN187 PO (10:05)
[2018-09-13] MEDS ORDERED: QUET25 PO (10:05)
[2018-09-13] MEDS ORDERED: TAMS.4ER PO (10:05)
--- NOTE | 2018-09-13 10:30 | NUR ---
0700: CARE ASSUMED, PT SLEEPING, VSS. SPO2 99% ON 4L/NC. PT NOT WOKEN AT THIS TIME. 0745: ASSESSMENT COMPLETED, LS CTA, DIM IN BASES, SPO2 REMAINS 97-99% ON 4L/NC. PT WAKES BREIFLY BUT IS DROWSY, ORIENTED X4. LS CLEAR, DIM IN BASES, OCCASIONAL COUGH NOTED. PT DENIES SOB. 0830: PHYSICAL THERAPIST AT BEDSIDE FOR TX, PT UP TO CHAIR WITH 1 PERSON ASSIST, THEN BACK TO BED WITH STAND BY. PT NOT PARTICULARLY COOPERATIVE WITH CARE, IS ABLE TO PARTICIPATE BUT IS RESISTANT. 0900: MORNING CARES COMPLETED, PT REMAINS RESISTANT TO HELP. PO MEDICATIONS TOLERATED WELL IN APPLESAUCE. PT REFUSING TO GET UP INTO CHAIR FOR BREAKFAST, IS AWARE THAT S.T. DOES NOT WANT HER TO EAT IN BED, REFUSING BREAKFAST AT THIS TIME. 1100: PT SLEEPING, VS STABLE. DISCHARGE BEING COORDINATED BY DC PLANNING.
--- NOTE | 2018-09-13 11:21 | NUR ---
1120: TOM PENA WNL AT THIS TIME. PT RESTING IN BED, DENIES C/O. VSS.
--- NOTE | 2018-09-13 11:59 | NUR ---
1200: PT REFUSING TO GET OUT OF BED AND EAT LUNCH, STATES SHE IS NOT HUNGRY AND IS TOO TIRED TO GET UP3. IMPORTANCE OF MOBILIZATION AND NUTRITION WELL BLOOD GLUCOSE LEVEL DISCUSSED WITH PT, PT CONTINUES TO REFUSE AND REMAINS IN BED AT THIS TIME.
--- NOTE | 2018-09-13 13:44 | NUR ---
PT REPORTS 7/10 DIFFUSE ABDOMINAL PAIN, DENIES NAUSEA. ABDOMEN SOFT WITH DECREASED BT, NO CHANGES NOTED FROM EARLIER ASSESSMENTS. TRAMADOL ADMINISTERED PER ORDERS. PT CONTINUES TO REFUSE TO GET UP IN THE CHAIR, STATES SHE IS NOT HUNGRY AND REFUSES FOOD. VSS.
--- NOTE | 2018-09-13 14:18 | NUR ---
PT REPORTS SHE FEELS LIKE SHE COULD VOID, REFUSES TO GET OUT OF BED TO USE THE TOILET. BEDPAN THEN OFFERED, PT REFUSES TO TURN FOR BEDPAN TO BE PLACED. PT BECAME FRUSTRATED, REPORTS SHE DOES NOT WANT TO VOID AT THIS TIME. PT REPOSITIONED IN BED, DISCHARGE PLANNING IN TO SPEAK WITH PT ABOUT PLANS FOR DISCHARGE.
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
--- NOTE | 2018-09-13 16:50 | NUR ---
1600: PALLIATAVE CARE HAS BEEN IN WITH PT TO DISCUSS PLAN OF CARE. PT HAS DECIDED THAT SHE WOULD LIKE TO BE DNR WITH COMFORT CARE AND EVENTUALLY DISCHARGED ON HOSPICE TO [facility]. PT AWARE OF IMPLICATIONS OF DNR/COMFORT CARE, VERBALIZES UNDERSTANDING AND VERIFIES WISHES. NEW POLST DOCUMENT FILLED OUT WITH PT BY PALLIATIVE CARE. 1650: PT'S COUSINS AT BEDSIDE, PLAN FOR COMFORT CARE AND EVENTUALLY HOSPICE DISCUSSED AND EXPLAINED TO FAMILY IN PT'S PRESENCE. PT CONTINUES TO CONFIRM WISHES FOR THIS PLAN. PT C/OI 10/23 BACK PAIN, DR. WORTHY NOTIFIED, NEW ORDERS RECEIVED.
--- NOTE | 2018-09-13 17:43 | NUR ---
1720: PT MEDICAL FLOOR STATUS, REPORT GIVEN TO BARTOLOME ORELLANA. 1730: SANTOS REPLACED PER PT REQUEST AND COMFORT SET ORDERS. URINE SENT TO LAB. 1740: PT REPORTS RELIEF FROM ROXANOL. TO ROOM 349 AT THIS TIME VIA BED WITH BELONGINGS, MEDICATIONS, AND CHART.
[2018-09-13 18:02] LABS: Source, Urine Catheter
[2018-09-13 18:06] LABS: Appearance, Urine Clear (Clear); Bilirubin, Urine Neg (Neg); Blood, Urine Neg (Neg); Color, Urine Amber (P-Yellow); Glucose Qualitative, Urine Neg (Neg); Ketones, Urine 2+ (Neg); Leukocyte Esterase, Urine 1+ (Neg); Nitrite, Urine Neg (Neg); Protein, Urine 1+ (Neg); Specific Gravity, Urine 1.015 (1.003-1.022); Urobilinogen, Urine 3+ (Normal); pH, Urine 6.5 (5.0-8.0)
[2018-09-13 18:11] LABS: Amorphous Light (0-Heavy); Bacteria Mod /hpf; Red Blood Cells, Urine 0-2 /hpf (0-2); Squamous Epithelial Cells Mod /hpf (Few)
[2018-09-13 18:12] LABS: Hyaline Casts 0-2 /lpf (0-2)
--- NOTE | 2018-09-13 18:19 | NUR ---
TRANSFER NOTE AND SHIFT SUMMARY RECEIVED REPORT FROM EMMY KEITA RN IN ICU. PT TO ROOM AT 1745, TRANSFERED WITH 4 PERSON ASSIST AND SLIDER SHEET. PT ORIENTED TO ROOM AND UNIT. EDUCATED ON FALL RISK AND CALL LIGHT. PT ON COMFORT CARE. A&OX3. CALM AND COOPERATIVE WITH CARE. PT HR RATE ELEAVATED, DISTANT. PT 91%ON 4L O2 VIA NC, LS EXP WHE T/O. PT REPORTS PAIN 6/10, DECREASED FROM ASSESMENT WITH PAIN MEDICATED. CALLED RT FOR BREATHING TREATMENT. PT DENIES OTHER S/SX OF DISTRESS. WILL CONTINUE TO MONITOR.
--- NOTE | 2018-09-13 22:11 | NUR ---
PT HAD LOW CBG. GIVEN OJ WITH SUGAR ADDED. CBG INCREASED.
--- NOTE | 2018-09-14 04:50 | NUR ---
SHIFT SUMMARY PT HAD NO ISSUES OR COMPLAINTS. PT SLEPT WELL. CALL LIGHT IN REACH.
--- NOTE | 2018-09-14 11:24 | NUR ---
PALLIATIVE CARE, COMFORT CARE VISIT. Case conferenced with RN prior to visit. Pt was placed on comfort care with plan for her to return home with hospice support and to begin a medicaid application in order for her to have more supportive care/placement for EOL care. Pt is awake and conversant but sometimes unable to finish a sentence. She states her back is hurting. She denies LYONS, sore throat. She reports some anxiety but states it is better now. Repositioned her to comfort. She is using O2 via nc and is more dyspnic with conversation. RN has been medicating for dyspnea with Roxanol per eMAR orders. Pt reports anticipating her brother's visit after he gets off work at 2pm and happy he will be visiting. Pt's regular medications have not been discontinued and she was willing to take them this am. RN has spoken to Dr regarding reviewing medications for comfort care orders. Pt expressed appreciation for therapeutic visit. Told her I would return tomorrow or sooner prn. She is not able to discuss dc planning or hospice agency of choice at this time.
--- NOTE | 2018-09-14 18:35 | NUR ---
NO ACUTE CHANGES NOTED THIS SHIFT, PT CALLS OUT WHEN SHE NEEDS SOMETHING, ONLY OCCASIONALLY DOES SHE USE THE CALL ISSA, SHE DOES NOT ATTEMPT TO GET OUT OF BED. REPORTING BACK PAIN AND GENERALIZED PAIN, CALLING FOR HER "MORPHINE" EVERY TWO HOURS. PT REFUSING TO BE REPOSITIONED OR ALLOWING A LINEN CHANGE TODAY. WILL CONTINUE TO MONITOR AND REPORT TO ONCOMING RN
--- NOTE | 2018-09-15 04:03 | NUR ---
SHIFT SUMMARY PT UP LATE AND HAD VISTORS THIS SHIFT. PT PAIN TX PER EMAR. PT CURRENTLY SLEEPING IN NO DISTRESS. CALL LIGHT IN REACH.
--- NOTE | 2018-09-15 08:49 | NUR ---
PT RESTING QUIETLY, DECLINED TO EAT BREAKFAST THIS MORNING, WILL MONITOR.
--- NOTE | 2018-09-15 18:59 | NUR ---
PT COMFORT CARE, NO ACUTE CHANGES NOTED THIS SHIFT, WILL CONTINUE TO MONITOR AND REPORT TO ONCOMING RN
--- NOTE | 2018-09-16 04:13 | NUR ---
SHIFT SUMMARY PT HAS DECREASED LOC THIS SHIFT. PT REFUSED ALL MEDS INCLUDING PAIN MEDS. PT IS BREATHING DEEPLY. WILL CONTINUE TO MONITOR.
[2018-09-16] MEDS ORDERED: LORA1 PO (12:50)
[2018-09-16] MEDS ORDERED: MORP20L PO (12:51)
[2018-09-16] MEDS ORDERED: PROM25S PR (12:53)
--- NOTE | 2018-09-16 13:52 | NUR ---
Initial Spiritual Care visit. Susan was sleeping when I entered room, but awakend briefly to touch. she was not able to stay awake for conversation. She appears well cared-for and comfortable. I prayed for her at bedside and held her hand for awhile. No family or friends present. I will remain available.
--- NOTE | 2018-09-16 16:21 | NUR ---
CASE CONFERENCED EARLIER IN THE DAY WITH AND LEXY RE: DC PLANNING, COMPLICATIONS WITH DC HOME WITH HOSPICE BUT NO CG IN THE HOME AND NO FAMILY ABLE TO TAKE HER TO THEIR HOME. VISITED PT IN HER ROOM. SHE IS SOUND ASLEEP AND DID NOT WAKE TO VERBAL OR TACTILE STIMULI. SHE STARTED TO ROUSE BUT WENT RIGHT BACK TO SLEEP. I DID NOT NOTE ANY NONVERBAL INDICATORS OF PAIN OR OR DISTRESS AT THIS TIME. ANXIETY AND DYSPNEA HAVE BEEN PT'S CHIEF C/O DISTRESS OVER THE WEEKEND. LEXY WORKING WITH PT'S BROTHER ON DC PLANNING. WILL DISCUSS MEDICATIONS WITH
--- NOTE | 2018-09-16 18:39 | NUR ---
SHIFT SUMMARY HERMANN WAS VERY LETHARGIC AT THE BEGINNING OF SHIFT, NOT WAKING UP FOR BREAKFAST OR LUNCH, THOUGH SHE BECAME VERY VERBAL AND YELLS OUT DURING BRIEF CHANGES/REPOSITIONING. SHE WOKE UP CONSIDERABLY THIS AFTERNOON. CONTINUOUSLY TAKES OFF OXYGEN, IT IS OFF AT THE MOMENT. VERY AWAKE. VERY CONFUSED.BROTHER VISITED. PICC REMOVED. SANTOS INTACT AND DRAINING, SANTOS CARE DONE. CBGS WNL EXCEPT LUNCH. PLAN TO DC TOMORROW. CALL LIGHT IN REACH, ROMEO
--- NOTE | 2018-09-17 08:43 | NUR ---
PATIENT AWAKE, ABLE TO ASK FOR PAIN MEDICATION BUT UNABLE TO STATE WHERE PAIN IS. PATIENT NOT FOLLOWING COMMANDS. ORAL CARE COMPLETED AND NUTRITIOM OFFERED. PATIENT REFUSING MEDICATIONS AND BREAKFAST. FALL PRECAUTIONS IN PLACE PER UNIT PROTOCOL.
--- NOTE | 2018-09-17 10:03 | NUR ---
PATIENT RESTING COMFORTABLY, REPOSITIONED TO L SIDE. NUTRITION OFFERED, BUT PATIENT REFUSING.
--- NOTE | 2018-09-17 11:06 | NUR ---
Comfort Care: Pt is resting with eyes closed at this time. BAG LINER reports that pt did not eat breakfast this morning. She pocketed some eggs and would not follow cues to swallow. Eggs were removed from her mouth by BAG LINER and nurse. Pt did not take PO medications today, she has had two doses of 10mg of roxanol. Moin, nurse, reports that she says, "pain pill" when she is in pain. Roxanol appears to be effective. Ativan was required yesterday, she has not needed any today. Moni reports that pt gets agitated when her pain isn't managed. Discussed barriers to discharging. Moni reports that pt does try to get out of bed; safety is an issue. It appears that pts needs include 24 hour care. She has a roommate and a brother. Roommate cannot care for her and brother lives in an and unable to care for pt, per notes and chart. Will remain available. Will discuss with doc to see if changes can be made to her medication list to gear more towards comfort. Insulin and blood sugar checks are agitating the pt, per nursing. She is not taking her medications. She has flomax ordered, but she has a collier catheter. Will follow up with physician.
--- NOTE | 2018-09-17 16:25 | NUR ---
REPOSITIONED, ORAL CARE COMPLETED AND NUTRITION OFFERED.
--- NOTE | 2018-09-17 16:55 | NUR ---
PATIENT MEDICATED X3 WITH 10MG ROXINOL. REPOSITIONING Q2 HOURS. REQUIRES FREQUENT ORAL CARE. VERY LITTLE PO INTAKE THIS SHIFT. NO IV ACCESS. PATIENT TOLERATES REPOSITIONING BETTER IF PREMEDICATED FOR PAIN. ORIENTED TO SELF ONLY TODAY. PLANS FOR BROTHER TO TAKE PATIENT HOME ON HOSPICE HAVE CHANGED AND NOW [facility] TO COME ON SUNDAY TO ASSIST WITH PLACEMENT. PATIENT DOES NOT USE CALL LIGHT FOR ASSISTANCE, BUT WILL YELL OUT FOR HELP.
--- NOTE | 2018-09-17 18:44 | NUR ---
SHAMPOOED PATIENTS HAIR AND ASSISTED WITH MEAL. PATIENT TOOK IN VERY LITTLE. NO S/S OF PAIN ASSESSED. FALL PRECAUTIONS IN PLACE.
--- NOTE | 2018-09-18 05:22 | NUR ---
SHIFT SUMMARY PT HAS BEEN MEDICATED X 3 FOR PAIN THIS EVENING. PT HOLLERS AND MOANS OUT IN PAIN. HOLLERS WITH MOVEMENT. SANTOS PATENT AND DRAINING DARK COLORED URINE. NO ACUTE CHANGES NOTED DURING THE NIGHT, WILL CONTINUE TO MONITOR.
--- NOTE | 2018-09-18 07:39 | NUR ---
PATIENT MEDICATED FOR PAIN PER EMAR. NO DYSPNEA/SECRETIONS. NO FAMILY MEMBERS PRESENT. WCTM.
--- NOTE | 2018-09-18 09:46 | NUR ---
PT IN NO APPARENT DISTRESS. NO DYSPNEA/SECRETIONS. FAMILY PRESENT. WCTM.
--- NOTE | 2018-09-18 11:33 | NUR ---
PATIENT IN NO APPARENT DISTRESS. NO DYSPNEA/SECRETIONS. NO FAMILY MEMBERS PRESENT. WCTM.
--- NOTE | 2018-09-18 12:55 | NUR ---
PT IN NO APPARENT DISTRESS. NO DYSPNEA/SECRETIONS. NO FAMILY MEMBERS PRESENT. WCTM.
--- NOTE | 2018-09-18 15:20 | NUR ---
MEDICATED FOR PAIN PER EMAR. NO DYSPNEA/SOB/SECRETIONS. NO FAMILY MEMBERS PRESENT. WCTM.
--- NOTE | 2018-09-18 17:00 | NUR ---
MEDICATED FOR PAIN AND ANXIETY PER EMAR. NO DYSPNEA/SECRETIONS. NO FAMILY IN ROOM. WCTM.
--- NOTE | 2018-09-18 17:15 | NUR ---
Comfort Care Palliative Note. Pt is awake, keeps taking her gown off and remains nude in bed. Attempted to straighten bed covers and gown and she swats my hands away from her. She does report pain, cannot report severity on scale. Reviewed with Tino, nurse. He states that 10mg roxanol is not helping much with controling her pain. Pt still has many medications on her eMAR. This was reviewed. He would like to reduce her pill burden. Reviewed eMAR. Pt has miralax, senna, and colace BID. It has not been given due to comfort care status. She has not had a bowel movement since September 09. Reviewed with Tino. Strategies discussed on how medications will be given. Suggest putting miralax in her tippy cup. Suggested giving doses of stool softeners now, if she will take them. Recommended bowel care tonight. She does have a suppository if needed; it would be appropriate to give her one tonight since it has been a prolonged period of no bowel movements. Will follow up per comfort care visit protocol, daily.
--- NOTE | 2018-09-18 17:52 | NUR ---
PT IN NO APPARENT DISTRESS. NO DYSPNEA/SOB/SECRETIONS. NO FAMILY PRESENT. WCTM.
--- NOTE | 2018-09-18 19:38 | NUR ---
SHIFT SUMMARY: NO ACUTE CHANGES TO REPORT THIS SHIFT. COMFORT CARE MEASURES CONTINUE. MEDICATED FOR PAIN AND ANXIETY PER EMAR. ASPIRATION PRECAUTIONS; PO MEDS WHOLE IN APPLE SAUCE c PATIENT UPRIGHT. REPORT GIVEN TO ONCOMING RN.
--- NOTE | 2018-09-19 06:25 | NUR ---
SHIFT SUMMARY PT ON CC. MOANS/YELLS OUT SO MEDICATED FOR PAIN X2 AND AFTER SECOND DOSE OF ROXANOL SHE WAS ABLE TO GET TO SLEEP AND SLEEP T/O NIGHT. SANTOS DRAINING. NO BM. BED ALARM IN USE.
--- NOTE | 2018-09-19 11:38 | NUR ---
Met with Yumiko in her room this morning. She is awake and removing her gown. Attempted to replace her gown and she continues to pull it off. Curtain pulled for privace and fam placed on bedside table for air flow.
--- NOTE | 2018-09-19 11:38 | NUR ---
Met with Yumiko in her room this morning. She is awake and calling out randomly. She is attempting to remove her clothing. Attempted to place gown back on pt, however she continues to pull off her gown. Pulled curtain for pt privacy. Bedside fan placed on pt's bedside table for comfort. Pt's abd is distended and she states "No!" when this clinical writer palpated her abd. No recorded BM since 09/08/18. Staff report minimal PO intake. Pt is receiving PO bowel care. Encouraged staff to use prn suppository order today for pt's comfort. Will follow up to see if bowel care effective. Pt has a meeting with [facility] later today for an assessment re: placement options. No family in room at the time of visit today. Able to wash pt's face this morning around her mouth before she shock her head and said "No!" Will continue to follow for symptom management.
--- NOTE | 2018-09-19 18:00 | NUR ---
SHIFT SUMMARY 63 YR OLD FEMALE ADMITTED FOR HERNIA. DNR. MECH/SOFT DIET. UP IN CHAIR FOR MEALS. AWAITING PLACEMENT ON HOSPICE. SANTOS CATHETER IN PLACE. COMFORT CARE. NONVERBAL OR FEW WORDS, YELLS WHEN IN PAIN. APPLIED SUPPOSITORY IN HOPES OF PROVOKING A BM TO NO EFFECT. ON ROOM AIR. NO IV. PILLS IN APPLESAUCE, ONE AT A TIME. [facility] EVAL TODAY. DISCHARGE PLANNING INVESTIGATING OPTIONS FOR PLACEMENT.
--- NOTE | 2018-09-20 07:07 | NUR ---
SHIFT SUMMARY PT ON CC. INCONT OF LARGE SOFT BM. MEDICATED FOR PAIN AND ANXIETY PER EMAR. SHE WAS ABLE TO SLEEP T/O NIGHT. NEW MEPILEX APPLIED TO COCCYX. BED ALARM IN USE.
--- NOTE | 2018-09-20 16:23 | NUR ---
SHIFT SUMMARY 63 YR OLD FEMALE ADMITTED FOR HERNIA, AND AT REPAIR POST-OP SHE DEVELOPED RESP. FAILURE AND WAS INTUBATED. PULMONARY EDEMA DEVELOPED. DNR. COMFORT CARE PT. HOPING FOR DC TO [facility] ON HOSPICE ON SUNDAY OR SUNDAY, ACCORDING TO FAMILY. MEPILEX ON COCCYX. LARGE BM TODAY DURING SHIFT. MECH-SOFT/ADA DIET, ASPIRATION PRECAUTIONS. I SAW TODAY THAT SHE COULD NOT USE A STRAW. PT FREQUENTLY CALLS OUT/VERBALIZES THROUGHOUT SHIFT. Q 2 HRS REPOSITIONING AND PRN. PT STILL HAS LITTLE APPETITE. CONFUSED
--- NOTE | 2018-09-20 16:59 | NUR ---
Comfort Care: Pt is resting in bed. She frequently calls out. She refuses to be repositioned, however, CONVEYOR MONITOR has been turning. It appears that she may be having pain with turning. Pt is not eating well. Her family was present and trying to get her to eat some icecream and she refused. Spoke with nurse, Nataliya. She states that pt has been complaining about pain, even though she is getting 20mg roxanol. Pt is having bowel movements. Call placed to Dr. Bobo to request pain control. Orders placed for oxycodone 5mg q 8 hours PRN. Will assess pain control tomorrow.
--- NOTE | 2018-09-21 06:29 | NUR ---
SHIFT SUMMARY PT IS A 63 Y/O FEMALE, ORIGINALLY ADMITTED FOR A HERNIA, AND CURRENTLY ON COMFORT CARE. PT IS A&O X SELF ONLY, AND CAN BE RESISTANT TO CARE. SHE WAS MEDICATED X 2 WITH PRN ROXANOL FOR PAIN DURING THE NIGHT. NO S/S OF NAUSEA OR SOB NOTED. NO OTHER ACUTE CHANGES IN PT CONDITION NOTED DURING THE NIGHT. WILL CONTINUE TO MONITOR AND TREAT PER EMAR.
--- NOTE | 2018-09-21 07:20 | NUR ---
COMFORT CARE PATIENT SITTING UP IN BED, ALERT TO SELF. ABLE TO SAY THAT SHE WAS IN PAIN. PAIN MEDICATION GIVEN. RESPIRATION UNLABORED. CALL LIGHT IN REACH, WILL CONTINUE TO MONITOR.
--- NOTE | 2018-09-21 16:12 | NUR ---
SHIFT SUMMARY PATIENT MEDICATED FREQUENTLY DURING SHIFT. PATIENT VERY PAINFUL DURING REPOSITION. SANTOS PATENT AND DRAINING. PATIENT DENIES NAUSEA AND SHORTNESS OF BREATH. RESPIRATIONS EVEN AND UNLABORED. PATIENT NAPPED OFF AND ON DURING SHIFT. CALL LIGHT IN REACH, WILL CONTINUE TO MONITOR.
--- NOTE | 2018-09-22 06:14 | NUR ---
SHIFT SUMMARY PT IS A 63 Y/O FEMALE, ORIGINALLY ADMITTED FOR A HERNIA. CURRENTLY COMFORT CARE STATUS. PT WAS MEDICATED X 2 FOR PAIN, AND OTHERWISE SLEPT WELL THROUGH THE NIGHT. NO COMPLAINTS OF NAUSEA OR SOB. NO OTHER ACUTE CHANGES IN PT CONDITION NOTED. WILL CONTINUE TO MONITOR AND TREAT PER EMAR.
--- NOTE | 2018-09-22 17:23 | NUR ---
Pt appears to be comfortable. Spoke to nurse, Vania. She has no concerns, appropriate medications are ordered. Chart reviewed, meds reviewed.
--- NOTE | 2018-09-22 17:36 | NUR ---
Pt appears comfortable. Medications reviewed, chart reviewed.
--- NOTE | 2018-09-22 18:12 | NUR ---
SHIFT SUMMARY PATIENT MEDICATED SEVERAL TIMES TODAY. PATIENT PAINFUL WITH REPOSITION. PATIENT DENIES NAUSEA AND SHORTNESS OF BREATH. PATIENT SHOWED SOME APPETITE TODAY AND HAD SEVERAL SNACKS. CALL LIGHT IN REACH, WILL CONTINUE TO MONITOR.
--- NOTE | 2018-09-23 05:28 | NUR ---
SHIFT SUMMARY PT IS A 63 Y/O FEMALE, ORIGINALLY ADMITTED FOR A HERNIA AND CURRENTLY ON COMFORT CARE. SHE IS A&O X SELF ONLY, AND OCCASIONALLY ABLE TO ANSWER QUESTIONS WITH ONE TO TWO WORD SENTENCES. PT REPORTED PAIN THROUGH THE NIGHT, AND WAS MEDICATED X 3 WITH PRN ROXANOL, AND ONCE WITH PRN OXYCODONE. PT SLEPT OFF AND ON DURING THE NIGHT, AND WOULD OCCASIONALLY CALL OUT OR MOAN. SANTOS IS IN PLACE, WITH MINIMAL DARK URINE OUTPUT. NO OTHER ACUTE CHANGES IN PT NOTED DURING THE NIGHT. WILL CONTINUE TO MONITOR AND TREAT PER EMAR.
--- NOTE | 2018-09-23 07:39 | NUR ---
PATIENT ALERT TO SELF. SANTOS PATENT/DRAINING. APPEARS PAINFUL AND IS MOANING, STATES SHE IS HAVING PAIN. RN MEDICATED PER E JUN. WILL CONTINUE TO MONITOR.
--- NOTE | 2018-09-23 17:47 | NUR ---
SHIFT SUMMARY PATIENT IS ON COMFORT CARE. ALERT TO SELF. PATIENT HAD C/O PAIN THROUGHOUT THE SHIFT. RN MEDICATED X 3 WITH PRN ROXANOL AND X 2 WITH PRN OXYCODONE. RN ALSO MEDICATED PATIENT FOR ANXIETY X1 WITH PRN ATIVAN. PATIENT WILL OCCASIONALLY ANSWER QUESTIONS WITH YES OR NO ANSWERS BUT AT TIMES DOES NOT MAKE SENSE WITH HER RESPONSES. PATIENT WILL CALL OUT AND MOAN AT TIMES. SANTOS PATENT AND DRAINING DARK COLORED URINE. PATIENT REFUSED REPOSITIONING FOR MOST OF THE SHIFT. Q2 HOUR COMFORT CARE ASSESSMENTS. NO ACUTE CHANGES THIS SHIFT. BED ALARM IN PLACE, CALL LIGHT WITHIN REACH. RN WILL CONTINUE TO MONITOR.
--- NOTE | 2018-09-24 05:07 | NUR ---
SHIFT SUMMARY PT HAD A PAINFUL BEGINING OF SHIFT. PT MEDICATED PER EMAR & HAS RELIEF NOW. PT SLEEPING WITH NO PHYSICAL SIGNS OF PAIN. NO OTHER CHANGES AT THIS TIME. WILL CONTINUE TO MONITOR UNTIL TURNOVER IS COMPLETE.
--- NOTE | 2018-09-24 15:03 | NUR ---
SUMMARY/DISCHARGED PT DISCHARGED TO [facility] ON HOSPICE, PT HAD BEEN MED SEVERAL TIMES FOR S/S DISCOMFORT PER EMAR, PT ABLE TO TAKE PILLS CRUSHED IN APPLESAUCE, PT MOANS ONLY, REPORT CALLED TO [facility] AND [facility], PT TAKEN OUT ON A GURNEY
== END 2018-09-24 14:53 | DRG 353 ==
LOC: DELPENDDIS → ER 17:51 → PCU 17:52 → SURS 17:52 → PCU 23:06 → SURS 23:18 → PCU 08-24 14:10 → MEDS 08-26 08:14 → ICUW 08-26 08:14 → PCU 08-26 08:14 → MEDS 08-27 20:28 → ICUW 08-28 14:30 → MEDS 09-06 01:27 → ICUW 09-09 17:58 → MEDS 09-13 17:41 → ENPENDDIS 09-16 10:27 → MEDS 09-24 14:53
PROVIDERS: Emergency Medicine; Hospitalist; Internal Medicine; Internal Medicine Critical Care Medicine; Internal Medicine Pulmonary Disease; ADMIT Internal Medicine
PROC: 0WUF0JZ Supplement Abdominal Wall with Synthetic Substitute, Open Approach (ICD-10-PCS; principal; 2018-08-25)
PROC: 5A09457 Assistance with Respiratory Ventilation, 24-96 Consecutive Hours, Continuous Positive Airway Pressure (ICD-10-PCS; 2018-08-28)
PROC: 5A09357 Assistance with Respiratory Ventilation, Less than 24 Consecutive Hours, Continuous Positive Airway Pressure (ICD-10-PCS; 2018-09-04)
DX: K43.6 Other and unspecified ventral hernia with obstruction, without gangrene (principal); J69.0 Pneumonitis due to inhalation of food and vomit; I46.9 Cardiac arrest, cause unspecified; J96.02 Acute respiratory failure with hypercapnia; E43 Unspecified severe protein-calorie malnutrition; G83.4 Cauda equina syndrome; N17.9 Acute kidney failure, unspecified; G40.109 Localization-related (focal) (partial) symptomatic epilepsy and epileptic syndromes with simple partial seizures, not intractable, without status epilepticus; G93.49 Other encephalopathy; E87.2 Acidosis; J44.9 Chronic obstructive pulmonary disease, unspecified; K21.9 Gastro-esophageal reflux disease without esophagitis; G89.29 Other chronic pain; E78.5 Hyperlipidemia, unspecified; M10.9 Gout, unspecified; I73.9 Peripheral vascular disease, unspecified; E66.9 Obesity, unspecified; K59.00 Constipation, unspecified; R41.82 Altered mental status, unspecified; E87.6 Hypokalemia; E11.65 Type 2 diabetes mellitus with hyperglycemia; T38.0X5A Adverse effect of glucocorticoids and synthetic analogues, initial encounter; Y92.239 Unspecified place in hospital as the place of occurrence of the external cause; B37.9 Candidiasis, unspecified; M06.9 Rheumatoid arthritis, unspecified; I67.9 Cerebrovascular disease, unspecified; Z51.5 Encounter for palliative care; D64.9 Anemia, unspecified; R21 Rash and other nonspecific skin eruption; Z68.33 Body mass index [BMI] 33.0-33.9, adult; Z79.84 Long term (current) use of oral hypoglycemic drugs
CPT/HCPCS: 31500; 31720; 36415; 36430; 36569; 36600; 51702; 70450; 71045; 71046; 71260; 74018; 74177; 80048; 80053; 80202; 81001; 82140; 82533; 82728; 82803; 82947; 83540; 83550; 83605; 83690; 83735; 83880; 84100; 84443; 84484; 85025; 85027; 85610; 85730; 86850; 86870; 86900; 86901; 86922; 87070; 87086; 87205; 92526; 92610; 93005; 93010; 94002; 94003; 94640; 94660; 94667; 94668; 94760; 94762; 95819; 96372; 96374; 96375; 96376; 97110; 97162; 97164; 97166; 97168; 97530; 97535; 99284-25; A9270; C1751; C1781; C1894; G0378; G0515; J0330; J0690; J1170; J1650; J1885; J1940; J1953; J1956; J2060; J2250; J2405; J2704; J2710; J2920; J2997; J3010; J3370; J3480; J7030; J7050; J7120; J8610; P9016; Q9967